=== PATIENT | male | born 1940 | race Caucasian/White ===

== ENCOUNTER 2018-12-16 11:57 | Inpatient (IN) ==
[2018-12-16 13:24] LABS: BASO# 0.01 X1000 (0.0-0.2); BASO% 0.1 % (0.0-0.8); EOS# 0.07 X1000 (0.0-0.7); EOS% 0.7 % (0.0-10.0); HEMATOCRIT 38.5 % (42.0-52.0); HEMOGLOBIN 13.3 g/dL (14.0-18.0); IMM GRAN# 0.02 X1000 (0.0-0.04); IMM GRAN% 0.2 % (0.0-0.5); LYMPH# 1.32 X1000 (1.2-3.4); LYMPH% 13.3 % (20.5-51.1); MCH 31.1 PG (27-31); MCHC 34.5 g/dL (33-37); MONO# 0.97 X1000 (0.11-0.59); MONO% 9.7 % (1.7-9.3); MPV 9.6 FL (7.4-10.4); NEUT# 7.57 X1000 (1.4-6.5); PLT 192 X1000 (130-400); RBC 4.28 XMIL (4.7-6.1); RDW 14.1 % (11.5-14.5); WBC 9.96 X1000 (4.8-10.8)
[2018-12-16 13:40] LABS: INR 4.37; PROTIME 44.7 Seconds (11.0-16.0)
[2018-12-16 14:10] LABS: AGAP 11; ALB/GLOB RATIO 1.4; ALBUMIN 3.6 g/dL (3.5-5.0); ALKALINE PHOSPHATASE 57 U/L (32-122); AMYLASE 1047 U/L (20-200); BUN 13 mg/dL (8-22); CALCIUM 8.7 mg/dL (8.8-10.2); CHLORIDE 105 mmol/L (98-107); COSMO 275; CREATININE 0.8 mg/dL (0.7-1.2); ESTIMATED GFR > 60; GLUCOSE 92 mg/dL (70-104); GOT 13 U/L (10-34); GPT 19 U/L (10-44); LIPASE 1539 U/L (13-60); MAGNESIUM 1.9 mg/dL (1.5-2.7); POTASSIUM 3.4 mmol/L (3.5-5.1); SODIUM 138 mmol/L (136-145); TCO2 22 mmol/L (25-35); TOTAL BILIRUBIN 1.05 mg/dL (0.20-1.00); TOTAL PROTEIN 6.2 g/dL (6.3-8.3)
--- NOTE | 2018-12-16 14:59 | Diag Imaging Result Doc PS360 ---
EXAM: CT ABD/PELVIS W/IV CONT ONLY 12/16/2018 HISTORY: genlzd abd pain, hx umb hernia TECHNIQUE: This exam was performed using automated exposure control, adjustment of mA or kV according to patient size, and/or use of iterative reconstruction technique. COMMENT: There are interstitial opacities in the costophrenic sulcus on the left which may be due to fibrosis. There are no previous studies available for comparison. There are calcifications in the aorta and its branches. There is no evidence of abdominal aortic aneurysm. The mesenteric and renal arteries are patent. There is an accessory renal artery on the right. The spleen is not enlarged. There is edema surrounding the pancreas particularly in the body and head region. The pancreatic duct is distended to 6 mm in the body. There are multiple calcifications present in the pancreatic head including one that is possibly in the distal common bile duct. This measures 8 mm in diameter. Additionally there is a possible intraductal calcification in the tail of the pancreas best seen on image 42 of the arterial phase. There are some small gallstones in the gallbladder. No evidence of gallbladder wall thickening or para cholecystic fluid is present. The liver is otherwise unremarkable. The kidneys are without evidence of hydronephrosis or mass. The stomach is not distended. There is fluid and gas in the colon without evidence of dilatation. There is fluid throughout much of the visualized small bowel. The possibility of some ileus is suspected. There is no evidence of significant adenopathy. The adrenal glands are not enlarged. The portal vein is patent. Pelvis: The appendix is normal in appearance. The urinary bladder is not distended. There bilateral fat-containing inguinal hernias. There are degenerative disc changes in the lumbar spine. There is no evidence of acute bony abnormality. There are healing fractures of the seventh eighth and ninth posterior ribs on the left. IMPRESSION: Acute pancreatitis possibly superimposed on chronic pancreatitis changes. The possibility of stones in the distal common bile duct and pancreatic duct cannot be excluded. Cholelithiasis. Electronically signed by Martinez Puri 12/16/2018 2:57 PM
[2018-12-16] MEDS ORDERED: LR 1,000 ML IV ONE (15:48)
[2018-12-16 15:57] LABS: URINE SOURCE CLEAN CATCH
[2018-12-16 16:04] LABS: BILIRUBIN URINE NEGATIVE (NEGATIVE); BLOOD URINE NEGATIVE (NEGATIVE); COLOR YELLOW; GLUCOSE URINE NEGATIVE (NEGATIVE); KETONE URINE NEGATIVE (NEGATIVE); LEUKOCYTES URINE NEGATIVE (NEGATIVE); NITRITE URINE NEGATIVE (NEGATIVE); PROTEIN URINE TRACE mg/dL (NEGATIVE); TURBIDITY URINE CLEAR (CLEAR); UROBILINOGEN URINE 3 mg/dL (NORMAL)
[2018-12-16 16:06] LABS: UR EPITHELIAL CELLS <10 /HPF (<10); URINE BACTERIA NEGATIVE /HPF; URINE RBC <10 /HPF (<10); URINE WBC <10 /HPF (<10)
[2018-12-16 16:17] LABS: UR AMPHETAMINES QUAL NONE DETECTED (NONE DETECT); UR BARBITUATES QUAL NONE DETECTED (NONE DETECT); UR BENZODIAZEPIN QUAL NONE DETECTED (NONE DETECT); UR CANNABINOIDS QUAL NONE DETECTED (NONE DETECT); UR COCAINE QUAL NONE DETECTED (NONE DETECT); UR METHADONE QUAL NONE DETECTED (NONE DETECT); UR OPIATES QUAL NONE DETECTED (NONE DETECT); UR OXYCODONE QUAL NONE DETECTED (NONE DETECT); UR PCP QUAL NONE DETECTED (NONE DETECT)
--- NOTE | 2018-12-16 16:32 | PROVIDER DOCUMENTATION ---
This chart was entered by Lisa Palomino Scribe, acting as scribe for Sandeep Bills MD. HPI-Abdominal Pain/GI Problem - General Chief Complaint: Abdominal Pain Stated Complaint: HERNIA Time Seen by Provider: 12/16/18 12:32 Source: patient Allergies/Adverse Reactions: Patient Allergies Allergy/AdvReac Type Severity Reaction Status Date / Time No Known Allergies Allergy Verified 09/14/17 09:48 Home Medications: Home Medication List Medication Instructions Recorded Confirmed Last Taken Type Aspirin 325 mg PO DAILY 09/14/17 03/07/18 02/28/18 08:00 History Metoprolol Tartrate 50 mg PO DAILY 09/14/17 03/07/18 03/06/18 08:00 History Atorvastatin Calcium 80 mg PO DAILY 03/01/18 03/07/18 02/28/18 08:00 History Finasteride 5 mg PO DAILY 03/01/18 03/07/18 02/28/18 08:00 History Folic Acid/Mv,Fe,Min [One Daily 1 each PO DAILY 03/01/18 03/07/18 03/06/18 08:00 History Complete Tablet] Metformin HCl 500 mg PO DAILY 03/01/18 03/07/18 03/06/18 21:00 History Omeprazole 20 mg PO DAILY 03/01/18 03/07/18 03/06/18 19:00 History Tamsulosin HCl 0.4 mg PO BID 03/01/18 03/07/18 03/06/18 19:00 History Warfarin Sodium 5 mg PO DAILY 03/01/18 03/07/18 02/28/18 08:00 History Acetaminophen [Tylenol] 1,000 mg PO Q6H tablet 03/08/18 Unknown Rx Celecoxib [Celebrex] 200 mg PO BID #60 cap 03/08/18 Unknown Rx Docusate Sodium [Colace] 100 mg PO BID capsule 03/08/18 Unknown Rx Magnesium Hydroxide [Milk of 30 ml PO Q6H PRN PRN udc 03/08/18 Unknown Rx Magnesia] Oxycodone I.r. [Oxy Ir] 5 mg PO Q3H PRN PRN #40 tab 03/08/18 Unknown Rx Pregabalin [Lyrica] 75 mg PO BID #60 cap 03/08/18 Unknown Rx Tramadol [Ultram] 100 mg PO Q6H #120 tab 03/08/18 Unknown Rx - History of Present Illness-ABD Nature of Presenting Problems: 78 y/o male presents to ED with constant, central abdominal pain onset last night. Pt reports hx umbilical hernia. Pt states he could not sleep last night due to the pain. Pt denies any other symptoms. Pt is alert and oriented. Abdominal Pain Onset Location: reports: other (central) Pain Radiation: reports: no radiation Quality of Pain: reports: sharp Severity in ED: reports: moderate Onset/Duration: reports: last night Timing: reports: still present Activities at Onset: reports: none Exposure to sick contacts?: No Modifying Factors: improves with: nothing Associated Symptoms: reports: denies symptoms Last BM: unsure Dark Stools Present?: reports: none noticed Rectal Bleeding: reports: none Rectal Pain: reports: none Similar Symptoms Previously?: No Recently seen or treated by another doctor?: No Review of Systems - Adult - REVIEW OF SYSTEMS - ADULT Constitutional: denies: chills, fever Eyes: reports: no symptoms reported Ears, Nose, Mouth & Throat: reports: no symptoms reported Cardiovascular: denies: chest pain, palpitations Respiratory: denies: cough, shortness of breath Gastrointestinal: denies: abdominal pain, diarrhea, nausea, vomiting Genitourinary: reports: no symptoms reported Musculoskeletal: denies: back pain, joint pain Integumentary: reports: no symptoms reported Neurological: denies: dizziness/vertigo, seizure Psychiatric: reports: no symptoms reported Endocrine: reports: no symptoms reported Hematologic/Lymphatic: reports: no symptoms reported Allergic/Immunologic: reports: no symptoms reported All Other Systems: Reviewed and Negative Past History - Adult - PAST MEDICAL HISTORY-ADULT Review of Records: reports: Old Records Reviewed, Nursing Assessment Review, Medications Reviewed Major Childhood Illnesses: reports: denies history Cardiovascular: reports: denies history, blood clots (on coumadin), CAD, HTN, hyperlipidemia, [place] Respiratory: reports: denies history Gastrointestinal: reports: denies history, other (umbilical hernia) Obstetrical/Gynecological: reports: denies history Genitourinary: reports: denies history Musculoskeletal: reports: denies history Neurological: reports: denies history Endocrine/Immune: reports: denies history, Diabetes Other Conditions: reports: denies history - PRIOR SURGERIES/PROCEDURES Surgical/Procedure History: reports: cardiac stent, joint replacement (TKR) - IMMUNIZATION STATUS Childhood Immunizations: See Nurse Assessment Flu Vaccine: See Nurse Assessment - FAMILY HISTORY Family History: reviewed, not pertinent - SOCIAL HISTORY Smoking: chew Provider spent 3-5 mins advising pt. on dangers of tobacco.: Discussed manners to quit use, and f/u contacts for add'l counseling. Substance Use: none/never Alcohol Use Frequency: never Living Situation: family Physical Exam-General - PHYSICAL EXAM-ADULT Initial Vital Signs Reviewed: Yes - CONSTITUTIONAL General Appearance: appears well, alert, no apparent distress - EYES Eyes: PERRL/EOMI, pink conjunctivae - HEAD, EARS, NOSE, MOUTH & THROAT HENMT: normocephalic/atraumatic, moist mucous membranes, normal ENT inspection - NECK Neck: non-tender, full range of motion - RESPIRATORY Respiratory: chest non-tender, lungs clear, normal breath sounds - CARDIOVASCULAR Cardiovascular: normal peripheral pulses, regular rate, rhythm - GASTROINTESTINAL (ABDOMEN) Abdominal Exam: normal bowel sounds, non tender, soft, hernia (umbilical), other (diastasis rectus). negative: guarding - MUSCULOSKELETAL Back Exam: normal inspection, no CVA tenderness Extremity: normal range of motion, non-tender, normal gait - SKIN Integumentary: normal color, warm/dry - NEUROLOGIC Neurologic: grossly normal - PSYCHIATRIC Psych/Mental Status: normal mood/affect, normal thought content, normal thought process Progress - PLAN OF CARE/RESULTS Progress/Plan/Lab Results: Vital Signs - 8 hr 12/16/18 12:03 Temperature 98.6 F Pulse Rate 73 Respiratory Rate 18 Blood Pressure 91/61 O2 Sat by Pulse Oximetry 96 Orders Category Date Time Status Admit - [facility] Routine AdmDCTranf 12/16/18 15:59 Active Nursing- MD Consult Request ROUTINE Care 12/16/18 15:52 Active Physician/Provider Consults Routine Cons 12/16/18 15:[address] ABD/PELVIS W/IV CONT ONLY [CT] Stat Exams 12/16/18 14:30 Completed ALCOHOL BLOOD Stat Lab 12/16/18 15:47 Ordered AMYLASE [CHEM] Stat Lab 12/16/18 13:13 Completed CBC WITH DIFF [HEME] Stat Lab 12/16/18 13:13 Completed COMPREHENSIVE METABOLIC PANEL [CHEM] Stat Lab 12/16/18 13:13 Completed LIPASE [CHEM] Stat Lab 12/16/18 13:13 Completed MAGNESIUM [CHEM] Stat Lab 12/16/18 13:13 Completed PROTIME WITH INR [COAG] Stat Lab 12/16/18 13:13 Completed PTT [COAG] Stat Lab 12/16/18 13:13 Completed URINALYSIS W/POSS RFLX CULT [URINALYSIS] Stat Lab 12/16/18 15:48 Results URINE DRUG SCREEN Routine Lab 12/16/18 15:48 Completed Lactated Ringers Inj [Lr] 1,000 ml Med 12/16/18 16:00 Active IV 75 mls/hr Lactated Ringers Inj [Lr] 1,000 ml Med 12/16/18 15:48 Active IV 999 mls/hr Transfer/Admit Order [TRANSFER] Routine Transfer 12/16/18 15:58 Ordered Laboratory Tests 12/16/18 12/16/18 12/16/18 13:13 13:13 13:13 WBC 9.96 RBC 4.28 L Hgb 13.3 L Hct 38.5 L MCV 90.0 MCH 31.1 H MCHC 34.5 RDW Std Deviation 14.1 Plt Count 192 MPV 9.6 Immature Gran % (Auto) 0.2 Neut % (Auto) 76.0 H Lymph % (Auto) 13.3 L [place] % (Auto) 9.7 H Eos % (Auto) 0.7 Baso % (Auto) 0.1 Immature Gran # (Auto) 0.02 Neut # (Auto) 7.57 H Lymph # (Auto) 1.32 [place] # (Auto) 0.97 H Eos # (Auto) 0.07 Baso # (Auto) 0.01 PT INR PTT (Actin FS) 48.4 H Sodium 138 Potassium 3.4 L Chloride 105 Carbon Dioxide 22 L Anion Gap 11 BUN 13 Creatinine 0.8 Estimated GFR/1.73 m2 > 60 BUN/Creatinine Ratio 16 Glucose 92 Calculated Osmolality 275 Calcium 8.7 L Magnesium 1.9 Total Bilirubin 1.05 H AST 13 ALT 19 Alkaline Phosphatase 57 Total Protein 6.2 L Albumin 3.6 Globulin 2.6 Albumin/Globulin Ratio 1.4 Amylase 1047 H Lipase 1539 H Urine Source Urine Color Urine Turbidity Urine pH Urine Protein Ur Glucose (Stick) Ur Ketones (Stick) Urine Blood Urine Nitrite Urine Bilirubin Urobilinogen Dipstick Urine Leukocytes Urine WBC (Auto) Urine RBC (Auto) U Epithel Cells (Auto) Urine Bacteria (Auto) Urine Opiates Screen Ur Oxycodone Screen Ur Methadone, Qual Ur Barbiturates Screen Ur Phencyclidine Scrn Ur Amphetamines Screen U Benzodiazepines Scrn Urine Cocaine Screen U Cannabinoids Screen 12/16/18 12/16/18 12/16/18 13:13 15:48 15:48 WBC RBC Hgb Hct MCV MCH MCHC RDW Std Deviation Plt Count MPV Immature Gran % (Auto) Neut % (Auto) Lymph % (Auto) [place] % (Auto) Eos % (Auto) Baso % (Auto) Immature Gran # (Auto) Neut # (Auto) Lymph # (Auto) [place] # (Auto) Eos # (Auto) Baso # (Auto) PT 44.7 H INR 4.37 PTT (Actin FS) Sodium Potassium Chloride Carbon Dioxide Anion Gap BUN Creatinine Estimated GFR/1.73 m2 BUN/Creatinine Ratio Glucose Calculated Osmolality Calcium Magnesium Total Bilirubin AST ALT Alkaline Phosphatase Total Protein Albumin Globulin Albumin/Globulin Ratio Amylase Lipase Urine Source CLEAN CATCH Urine Color YELLOW Urine Turbidity CLEAR Urine pH 6.0 Urine Protein TRACE A Ur Glucose (Stick) NEGATIVE Ur Ketones (Stick) NEGATIVE Urine Blood NEGATIVE Urine Nitrite NEGATIVE Urine Bilirubin NEGATIVE Urobilinogen Dipstick 3 A Urine Leukocytes NEGATIVE Urine WBC (Auto) <10 Urine RBC (Auto) <10 U Epithel Cells (Auto) <10 Urine Bacteria (Auto) NEGATIVE Urine Opiates Screen NONE DETECTED Ur Oxycodone Screen NONE DETECTED Ur Methadone, Qual NONE DETECTED Ur Barbiturates Screen NONE DETECTED Ur Phencyclidine Scrn NONE DETECTED Ur Amphetamines Screen NONE DETECTED U Benzodiazepines Scrn NONE DETECTED Urine Cocaine Screen NONE DETECTED U Cannabinoids Screen NONE DETECTED Result Diagrams: 12/16/18 13:13 12/16/18 13:13 - CT/MRI 1 CT Study: Abdomen, Pelvis Impression: Abnormal (COMMENT: There are interstitial opacities in the costophrenic sulcus on the left which may be due to fibrosis. There are no previous studies available for comparison. There are calcifications in the aorta and its branches. There is no evidence of abdominal aortic aneurysm. The mesenteric and renal arteries are patent. There is an accessory renal artery on the right. The spleen is not enlarged. There is edema surrounding the pancreas particularly in the body and head region. The pancreatic duct is distended to 6 mm in the body. There are multiple calcifications present in the pancreatic head including one that is possibly in the distal common bile duct. This measures 8 mm in diameter. Additionally there is a possible intraductal calcification in the tail of the pancreas best seen on image 42 of the arterial phase. There are some small gallstones in the gallbladder. No evidence of gallbladder wall thickening or para cholecystic fluid is present. The liver is otherwise unremarkable. The kidneys are without evidence of hydronephrosis or mass. The stomach is not distended. There is fluid and gas in the colon without evidence of dilatation. There is fluid throughout much of the visualized small bowel. The possibility of some ileus is suspected. There is no evidence of significant adenopathy. The adrenal glands are not enlarged. The portal vein is patent. Pelvis: The appendix is normal in appearance. The urinary bladder is not distended. There bilateral fat-containing inguinal hernias. There are degenerative disc changes in the lumbar spine. There is no evidence of acute bony abnormality. There are healing fractures of the seventh eighth and ninth posterior ribs on the left. IMPRESSION: Acute pancreatitis possibly superimposed on chronic pancreatitis changes. The possibility of stones in the distal common bile duct and pancreatic duct cannot be excluded. Cholelithiasis. Electronically signed by Martinez Puri 12/16/2018 2:57 PM 12/16/18 [id number]) - CONSULTS/PCP/HOSPITALIST Notification #1 *Consult/PCP/Hospitalist*: Dr. Campbell Time Discussed: 16:00 Consult Disposition: Admit Departure - Departure Date of Disposition Decision: 12/16/18 Time of Disposition Decision: 16:31 DIAGNOSIS: Common bile duct stone Pancreatitis Qualifiers: Chronicity: acute Pancreatitis type: unspecified pancreatitis type Acute pancreatitis complication: unspecified Qualified Code(s): K85.90 - Acute pancreatitis without necrosis or infection, unspecified Disposition: ADMITTED INPATIENT 09 Certified Medical Emergency: Emergent Condition: Stable Referrals and Follow-Ups: Stefania Hogan MD [Primary Care Provider] - Discharge Education: Smokeless Tobacco Information, Adult - Critical Care Note This patient required my direct & personal management of CC.: No Attestation - Physician/ SP Attestation Patient care was provided by Advanced Practice Provider:: No The physician spent face to face time with patient:: Yes Advanced Practice Provider documentation review:: Supervising physician onsite and consulted in the evaluation and care of this patient. The physician did have a face to face encounter with the patient. This chart was documented by the indicated scribe, (Lisa Palomino, Abby) and accurately reflects the services I performed and decisions made by me, Sandeep Bills MD, as attested by the provider's signature.
[2018-12-16 16:46] LABS: SP GRAVITY URINE 1.015
[2018-12-16] MEDS ORDERED: NORCO-10 PO PRN (17:18)
[2018-12-16] MEDS: LR 1,000 ML IV SCH (17:40)
[2018-12-16] MEDS ORDERED: FLOMAX PO SCH (21:00)
[2018-12-16] MEDS: POTASSIUM CHLORIDE 20 MEQ/SWI 20 MEQ/100 ML IVPB IV SCH (21:45)
--- NOTE | 2018-12-16 22:27 | HISTORY AND PHYSICAL ---
CHIEF COMPLAINT: Abdominal pain for 10 hours. HISTORY OF PRESENT ILLNESS: Mr. Kim is a 78-year-old man, a poor historian, who comes in with chief complaint of abdominal pain of about 10 hours duration. The patient states that he started experiencing periumbilical abdominal pain which was sharp at nighttime, and he woke up with the pain. His pain did not get better, so that is why he considered coming to the emergency room. He describes pain as sharp, about 8 on 10 intensity, without associated nausea or vomiting, without any radiation, without any aggravating or relieving factors. He has not had such pain in the past. In the emergency room, by the time he came in, his abdominal pain had resolved; however, his lab tests suggested significant abnormality with elevated amylase and lipase and a possibility of common bile duct stone with acute on chronic pancreatitis, so hospitalist team was consulted for further management. At the time of my evaluation, he is denying any more abdominal pain. He never had any nausea or vomiting. He states he was constipated and took some stool softeners, and since then he has had 5 bowel movements. His last drink was several weeks ago. He is denying active alcohol use and he is no longer smoking. He denies known history of gallstones. REVIEW OF SYSTEMS: Negative for headache. Negative for blurry vision. Negative for nausea, vomiting. Negative for chest pain or shortness of breath. Negative for abdominal pain at the moment. Negative for nausea, vomiting. Negative for urinary symptoms. Negative for burning in urination or dizziness. PAST MEDICAL HISTORY: History is limited as the patient is a poor historian; however, based on the records and with the limited history, he does have past medical history of: 1. Alcohol abuse. 2. Tobacco abuse. 3. Chronic pancreatitis. 4. Benign prostatic hypertrophy. 5. Chronic GERD. 6. Right lower extremity DVT. 7. Coronary artery disease, status post stent in 2015. 8. DVT in right lower extremity in 2015. 9. Diabetes, noninsulin dependent. 10. Essential hypertension. 11. Hyperlipidemia. PAST SURGICAL HISTORY: Right total knee replacement. PERSONAL HISTORY: He used to smoke 1 pack a day and he smoked for about 30 to 40 years. He quit around year 1999. He used to drink 6 to 7 beers every day, and he quit about 1 year ago. He denies any recreational drug use. ALLERGIES: No medication allergy. FAMILY HISTORY: Not significant. HOME MEDICATIONS: According to records, he is takin. Atorvastatin 80 mg daily. 2. Finasteride 5 mg daily. 3. Hydrocodone acetaminophen 10 mg. The frequency is not recorded. 4. Metformin 500 mg likely b.i.d. 5. Metoprolol 50 mg. 6. Nitroglycerin 0.4 mg. 7. Omeprazole 20 mg. 8. Ramipril 10 mg. 9. Tamsulosin 0.4 mg. 10. Warfarin 5 mg daily. CURRENT VITAL SIGNS: He is afebrile with temperature of 98.6 degrees, pulse 73, respiratory rate 18, blood pressure 90/61, saturating 96% on room air. PHYSICAL EXAMINATION: GENERAL: He does not appear in acute distress. ORAL CAVITY: Moist. LUNGS: Air entry bilaterally equal. No wheeze, rhonchi, crackles. HEART: S1, S2 normal. No murmur or gallop. ABDOMEN: Soft, nontender. Active bowel sounds. No hepatosplenomegaly. Tympanic to percussion. EXTREMITIES: He does not have lower extremity edema. NEUROLOGIC: He is alert and oriented x3. LABS: Significant for normal WBC, normal hemoglobin, and normal platelet count. He does have elevated INR of 4.3. Hypokalemia. Normal kidney function. Elevated amylase and lipase. Urinalysis was unremarkable. His plasma alcohol level was undetectable, and urine toxicology was an undetectable. IMAGING: Abdomen and pelvis CT had suggested acute pancreatitis, possibly superimposed on chronic pancreatitis. There were possibility of stones in the distal common bile duct and pancreatic duct and cholelithiasis. ASSESSMENT: 1. Suspected acute gallstone pancreatitis on chronic pancreatitis. Considering that he is without any pain after he has been in the emergency room and no tenderness, it is possible that he might have passed a gallstone and pancreatitis is resolving. 2. History of coronary artery disease and stenting in 2015, approximately. 3. History of right lower extremity deep venous thrombosis, on Coumadin, with current supratherapeutic INR. 4. Hypokalemia. PLAN: 1. I will start patient on intravenous lactated Ringer's. 2. I will replete his potassium. 3. I will resume his home antihypertensive and anticholesterol medication as tolerated. 4. I will also consult Gastroenterology to see if he would need procedural intervention of his suspected common bile duct stone. 5. Plan of care discussed with the patient. All of his questions have been answered. cc: Jase Campbell MD MTDD
[2018-12-16] MEDS: DUONEB (A & A) INH SCH (22:29)
[2018-12-16] MEDS: HUMALOG SUBQ SCH (23:21)
[2018-12-17] MEDS: POTASSIUM CHLORIDE 20 MEQ/SWI 20 MEQ/100 ML IVPB IV SCH (00:59)
[2018-12-17] MEDS: DUONEB (A & A) INH SCH ×2 (03:20→10:39)
[2018-12-17] MEDS: LR 1,000 ML IV SCH (06:03)
[2018-12-17] MEDS: HUMALOG SUBQ SCH ×2 (06:03→11:59)
[2018-12-17] MEDS: PRILOSEC PO SCH ×2 (06:03→06:05)
[2018-12-17 07:43] LABS: BASO# 0.01 X1000 (0.0-0.2); BASO% 0.1 % (0.0-0.8); EOS# 0.07 X1000 (0.0-0.7); EOS% 0.9 % (0.0-10.0); HEMATOCRIT 38.6 % (42.0-52.0); HEMOGLOBIN 13.2 g/dL (14.0-18.0); LYMPH# 1.29 X1000 (1.2-3.4); LYMPH% 16.7 % (20.5-51.1); MCHC 34.2 g/dL (33-37); MCV 90.6 FL (81-99); MONO# 0.79 X1000 (0.11-0.59); MONO% 10.2 % (1.7-9.3); MPV 9.6 FL (7.4-10.4); NEUT# 5.57 X1000 (1.4-6.5); NEUT% 72.1 % (42.2-75.2); PLT 166 X1000 (130-400); RBC 4.26 XMIL (4.7-6.1); RDW 13.9 % (11.5-14.5); WBC 7.73 X1000 (4.8-10.8)
[2018-12-17 08:01] LABS: INR 3.6; PROTIME 38.4 Seconds (11.0-16.0)
[2018-12-17 08:15] LABS: AGAP 10; BUN 12 mg/dL (8-22); CHLORIDE 107 mmol/L (98-107); COSMO 281; CREATININE 0.8 mg/dL (0.7-1.2); ESTIMATED GFR > 60; GLUCOSE 98 mg/dL (70-104); MAGNESIUM 1.8 mg/dL (1.5-2.7); POTASSIUM 4.1 mmol/L (3.5-5.1); SODIUM 141 mmol/L (136-145); TCO2 24 mmol/L (25-35)
[2018-12-17] MEDS ORDERED: LIPITOR PO SCH (09:00)
[2018-12-17] MEDS ORDERED: PROSCAR PO SCH (09:00)
[2018-12-17 09:05] LABS: ALB/GLOB RATIO 1.5; ALBUMIN 3.5 g/dL (3.5-5.0); DIRECT BILIRUBIN 0.3 mg/dL (0.00-0.20); TOTAL BILIRUBIN 1.14 mg/dL (0.20-1.00); TOTAL PROTEIN 5.9 g/dL (6.3-8.3)
[2018-12-17] MEDS ORDERED: COLACE PO PRN (10:15)
[2018-12-17 12:33] VITALS: BP 137/65
[2018-12-17] MEDS ORDERED: FISH OIL CONCENTRATE PO SCH (21:00)
[2018-12-17] MEDS ORDERED: FLOMAX PO SCH (21:00)
--- NOTE | 2018-12-18 06:39 | GASTROENTEROLOGY CONSULTATION ---
DATE: 12/17/2018 REASON FOR CONSULTATION: Acute pancreatitis. HISTORY OF PRESENT ILLNESS: Mr. Nakul Kim is a 78-year-old gentleman with past medical history of hypertension, hyperlipidemia, coronary artery disease status post FL and stents in 2014, prior DVT in the right lower extremity, on Coumadin, remote tobacco and alcohol abuse, GERD, noninsulin- dependent diabetes, who presents with acute abdominal pain that started yesterday. He reports that the pain was periumbilical and severe, nonradiating, up to 8/10, and sharp in nature. He denies any associated nausea, vomiting, fevers, chest pain, shortness of breath, diarrhea, constipation, rectal bleeding, history of similar symptoms in the past. No lightheadedness or dizziness. REVIEW OF SYSTEMS: As per HPI, somewhat limited as patient was not as cooperative with interview. PAST MEDICAL HISTORY: Per patient and chart, include chronic pancreatitis, GERD, right lower extremity DVT, coronary artery disease status post FL and stents, noninsulin- dependent diabetes, hypertension, hyperlipidemia, prior alcohol and tobacco abuse. PRIOR SURGICAL HISTORY: Right total knee replacement. SOCIAL HISTORY: The patient used to be 1 [id number] smoker for about 30 to 40 years, he quit around to 1999. He used to drink 6 to 7 beers a day, he quit about a year ago. He denies any recreational drug use. ALLERGIES: No known drug allergies. FAMILY HISTORY: No family history of pancreatitis or pancreatic cancer. HOME MEDICATIONS: According to the records lovastatin, finasteride, Elfrida, metformin, metoprolol, nitroglycerin, omeprazole, ramipril, tamsulosin, warfarin. PHYSICAL EXAMINATION: Vital signs: Stable with the temperature of 98.3 degrees, heart rate of 69, respiratory rate 20, blood pressure 140/73, O2 saturation 97% on room air. General: Patient is awake, alert, oriented, no acute distress. HEENT: Sclerae anicteric. Moist mucous membranes. Neck: Supple. No JVD. No lymphadenopathy. Cardiac: Regular rate and rhythm. No murmurs, rubs, or gallops. Lungs: Clear to auscultation bilaterally. No wheezing. Abdomen: Soft, nontender, nondistended. Normoactive bowel sounds. No rebound or guarding. Extremities: No clubbing, cyanosis, or edema. Neuro: Nonfocal. The patient is A and O x3. LABORATORY DATA: White count of 7.7, hemoglobin 13.2, platelets of 166,000. INR was 4.3 on admission, now 3.6. Sodium 141, potassium 4.1, chloride 107, bicarb 24, BUN 12, creatinine 0.8. Glucose of 98, calcium 9.0, magnesium 1.8, total bilirubin 1.14, direct of 0.30, primarily indirect hemoglobinuria, AST is 14, ALT is 17, alkaline phosphatase 59, total protein 5.9, albumin 3.5, lipase of 1539. UA showed urobilinogen, trace protein. Urine toxicology is negative. Alcohol level is negative. IMAGING: CT abdomen and pelvis with IV contrast only showed acute pancreatitis, possibly superimposed on chronic pancreatitis. The possibility of stones in the distal common bile duct and pancreatic duct cannot be excluded. Cholelithiasis. ASSESSMENT AND PLAN: Mr. Nakul Kim is a 78-year-old gentleman with past medical history of hypertension, coronary artery disease status post FL and stents, prior deep venous thrombosis, on warfarin, prior tobacco and alcohol abuse, and chronic pancreatitis, who presents with acute on chronic pancreatitis. His vital signs are stable. His CT shows changes consistent with chronic pancreatitis with question distal CBD stone, although there was no common bile duct dilation seen on imaging. MRCP has been ordered and pending. LFTs are normal. His abdominal pain has resolved, suggestive of a passed gallstone. No alcohol or recent smoking. No abnormal weight loss. Renal function is normal. INR was 4.3, currently 3.9, supratherapeutic. 1. Acute pancreatitis. Significant improvement overnight with supportive care and IV fluids. MRCP is ordered. If unable to do this weekend, can defer to outpatient given the patient's improvement in symptoms and normal LFTs. We can start him on a low-fat diet and monitor. If he is doing well, he can be discharged from a GI standpoint with outpatient followup in the next 1 to 2 weeks. He will need a general surgery evaluation either in-house or as an outpatient for evaluation of possible cholecystectomy. 2. Prior deep venous thrombosis, on warfarin. We are holding his warfarin in the setting of supratherapeutic INR. 3. Chronic pancreatitis on imaging. Continue to encourage avoidance of alcohol and smoking. 4. Coronary artery disease. He does not have any chest pain. Continue aspirin, statin, and metoprolol. 5. Gastroesophageal reflux disease. He is on a proton pump inhibitor once daily. 6. Noninsulin-dependent diabetes. He is on sliding scale insulin and metformin. 7. Constipation, on docusate. Thank you for this consult. Plan discussed with primary team. Please call with any questions or concerns. [facility]
[2018-12-18] MEDS ORDERED: KLOR-CON PO SCH (09:00)
[2018-12-18] MEDS ORDERED: ASPIRIN PO SCH (09:00)
[2018-12-18] MEDS ORDERED: LOPRESSOR PO SCH (09:00)
[2018-12-18] MEDS ORDERED: LIPITOR PO SCH (09:00)
[2018-12-18] MEDS ORDERED: GLUCOPHAGE PO SCH (09:00)
[2018-12-18] MEDS ORDERED: THERA M PLUS PO SCH (09:00)
[2018-12-18] MEDS ORDERED: PROSCAR PO SCH (09:00)
--- NOTE | 2018-12-18 09:34 | DISCHARGE SUMMARY ---
ADMISSION DATE: 12/16/2018 DISCHARGE DATE: 12/17/2018 DISCHARGE DISPOSITION: Home. I called patient's son and informed him about medical course and provided him detailed discharge instructions about getting outpatient MRCP and following up with show horse driver and surgeon. DISCHARGE CONDITION: Stable hemodynamically. Patient is alert and oriented. Denies any nausea, vomiting, abdominal pain. He denies any abdominal pain. DISCHARGE DIAGNOSES: 1. Acute likely gallstone-induced pancreatitis on chronic pancreatitis. 2. Hypokalemia. 3. Supratherapeutic INR in the setting of Coumadin use. 4. Suspected choledocholithiasis and pancreatic duct gallstone with cholelithiasis. OTHER DIAGNOSES: 1. History of essential hypertension. 2. History of coronary artery disease, status post stent in 2014. 3. History of deep venous thrombosis in the right lower extremity in 2014, on chronic Coumadin. 4. History of noninsulin-dependent diabetes mellitus. 5. Hyperlipidemia. 6. History of alcohol abuse, resolved since 1 year. 7. History of tobacco abuse, quit since 25 years ago . 8. History of chronic pancreatitis. 9. History of right total knee replacement. CONSULTATIONS DURING HOSPITALIZATION: [facility], Dr. Lafleur. DISCHARGE MEDICATIONS: Aspirin 325 mg daily, atorvastatin 80 mg daily, docusate 100 mg b.i.d. as needed for constipation, finasteride 5 mg daily, potassium chloride 20 mEq daily, metformin 500 mg daily, metoprolol 50 mg daily, omega-3 fatty acids 1 tablet b.i.d., folic acid 1 tablet daily of 1 mg, tamsulosin 0.4 mg b.i.d., warfarin 5 mg daily. VITALS: At the time of discharge, temperature 98.3 degrees, pulse 69, respiratory rate 20, blood pressure 140/76, saturating 97% on room air. PHYSICAL EXAMINATION: The patient does not appear in any acute distress. Oral cavity is moist. Lungs: Air entry bilaterally equal. No wheeze, rhonchi, crackles. Cardiovascular: S1, S2 normal. No murmur or gallop. Abdomen: Soft, nontender. Active bowel sounds. He is currently having a bowel movement. No hepatosplenomegaly. Tympanic to percussion. No lower extremity edema. He is alert and oriented x3. SIGNIFICANT LABS DURING HOSPITAL ADMISSION AND DISCHARGE: WBCs 7.7, hemoglobin 13.2, platelet count 166,000. INR 4.3, which had decreased to 3.6 at the time of discharge. Potassium was 3.4 which had increased to 4.1 at the time of discharge after repletion. BUN of 12, creatinine of 0.8. Total bilirubin of 1.1, direct bilirubin of 0.3. Normal AST, ALT. Amylase and lipase on admission were 1447 and 1500 respectively. Urinalysis was negative for any recreational substances and blood alcohol level was undetectable. No new microbiological data. IMAGING: During hospital admission, abdominal and pelvic CT had detected acute pancreatitis, possibly superimposed on chronic pancreatitis changes. There was possibility of stones in the distal common bile duct and pancreatic duct. There was also cholelithiasis. HOSPITAL COURSE SUMMARY: Mr. Kim is a 78-year-old, man with a past medical history of alcohol abuse who came in with complaints of sudden onset abdominal pain. The patient was a poor historian. He states he had woken up with sudden abdominal pain and that is why he had decided to come to the emergency room. It is likely that his abdominal pain was present for about 6 hours or so. However, by the time he reached the emergency room, his pain had resolved. He was hemodynamically stable in the emergency room. However, the CAT scan of the abdomen and pelvis had detected suspected common bile duct stone, and he had elevated amylase and lipase, so admission was requested for management of acute pancreatitis. I started him on intravenous fluid resuscitation. However, at the time of my encounter, he was already abdominal pain free and gastroenterology was consulted. MRCP was requested. However, considering it was a weekend, it could not be done. The patient was started on diet and he has been tolerating diet well, so it was decided to discharge the patient and get an outpatient MRCP. A prescription slip of MRCP has been provided to the patient. I called patient's son and informed him about getting an outpatient MRCP 1 day after the discharge and follow up with show horse driver and general surgeon doctor, and discuss about the results. If the MRCP detects that the stones are indeed in common bile duct or pancreatic duct, then he may need further intervention from gastroenterology or surgeon. Plan of care was discussed with the patient. All of his questions were answered satisfactorily. More than 30 minutes were spent in discharging this patient. cc: Jase Campbell MD
== END 2018-12-17 14:53 | disposition home or self-care (01) | DRG 440 ==
LOC: ED 11:57 → 3N 16:52
PROVIDERS: ATTEND Internal Medicine
CPT/HCPCS: 74177; 80048; 80053; 80076; 80101; 80301; 80307; 80320; 80324; 80345; 80346; 80353; 80358; 80361; 80365; 81001; 82055; 82150; 82948; 83690; 83735; 83992; 85025; 85610; 85730; 93005; 94640; 94761; 99285; A9270; G0431; G0434; G0479; G0480; G6040; J3480; J7120; Q9967; S0138; XXXXX

== ENCOUNTER 2019-05-21 16:17 | Inpatient (IN) ==
[2019-05-21] MEDS ORDERED: DUONEB (A & A) INH ONE (16:39)
[2019-05-21] MEDS ORDERED: SOLU-MEDROL IV ONE (16:40)
[2019-05-21] MEDS ORDERED: ASPIRIN PO ONE (16:41)
[2019-05-21 17:02] LABS: BASO# 0.01 X1000 (0.0-0.2); BASO% 0.1 % (0.0-0.8); EOS# 0.02 X1000 (0.0-0.7); EOS% 0.2 % (0.0-10.0); HEMATOCRIT 39.7 % (42.0-52.0); HEMOGLOBIN 13.4 g/dL (14.0-18.0); IMM GRAN# 0.02 X1000 (0.0-0.04); IMM GRAN% 0.2 % (0.0-0.5); LYMPH# 0.76 X1000 (1.2-3.4); LYMPH% 8.4 % (20.5-51.1); MCHC 33.8 g/dL (33-37); MONO# 0.69 X1000 (0.11-0.59); MONO% 7.6 % (1.7-9.3); NEUT# 7.53 X1000 (1.4-6.5); NEUT% 83.5 % (42.2-75.2); PLT 193 X1000 (130-400); RBC 4.46 XMIL (4.7-6.1); WBC 9.03 X1000 (4.8-10.8)
[2019-05-21 17:24] LABS: AGAP 15; ALB/GLOB RATIO 1.6; ALBUMIN 3.9 g/dL (3.5-5.0); ALKALINE PHOSPHATASE 433 U/L (32-122); BUN 11 mg/dL (8-22); CHLORIDE 98 mmol/L (98-107); COSMO 272; CREATININE 0.8 mg/dL (0.7-1.2); ESTIMATED GFR > 60; GLUCOSE 144 mg/dL (70-104); GOT 506 U/L (10-34); GPT 476 U/L (10-44); LIPASE 277 U/L (13-60); POTASSIUM 3.3 mmol/L (3.5-5.1); SODIUM 135 mmol/L (136-145); TCO2 22 mmol/L (25-35); TOTAL BILIRUBIN 2.82 mg/dL (0.20-1.00); TOTAL PROTEIN 6.3 g/dL (6.3-8.3)
[2019-05-21] MEDS ORDERED: KLOR-CON PO ONE (17:46)
--- NOTE | 2019-05-21 18:03 | Diag Imaging Result Doc PS360 ---
EXAM: CHEST-1 VIEW - 05/21/2019 HISTORY: sob, cp TECHNIQUE: Portable chest one view COMPARISON: 03/11/2018 FINDINGS: Inspiration is somewhat shallow. Lungs appear essentially clear. There is no pleural effusion or pneumothorax identified. There is borderline cardiomegaly. IMPRESSION: Borderline cardiomegaly. Somewhat shallow inspiration. No other evidence of acute disease. Electronically signed by Renzo Easton 05/21/2019 6:00 PM
[2019-05-21 18:09] LABS: URINE SOURCE CLEAN CATCH
[2019-05-21] MEDS ORDERED: LASIX IV ONE (18:10)
[2019-05-21 18:11] LABS: BILIRUBIN URINE SMALL (NEGATIVE); BLOOD URINE NEGATIVE (NEGATIVE); COLOR YELLOW; GLUCOSE URINE NEGATIVE (NEGATIVE); KETONE URINE NEGATIVE (NEGATIVE); LEUKOCYTES URINE NEGATIVE (NEGATIVE); NITRITE URINE NEGATIVE (NEGATIVE); PROTEIN URINE 50 mg/dL (NEGATIVE); SP GRAVITY URINE 1.033; TURBIDITY URINE CLEAR (CLEAR); UROBILINOGEN URINE 8 mg/dL (NORMAL)
[2019-05-21 18:20] LABS: UR EPITHELIAL CELLS <10 /HPF (<10); URINE BACTERIA NEGATIVE /HPF; URINE RBC <10 /HPF (<10); URINE WBC <10 /HPF (<10)
--- NOTE | 2019-05-21 18:23 | Diag Imaging Result Doc PS360 ---
EXAM: CT ABD/PELVIS W/IV CONT ONLY - 05/21/2019 HISTORY: abdominal tenderness, recent pancreatitis TECHNIQUE: CT abdomen/pelvis with intravenous contrast. No oral contrast administered per request of the referring provider. COMPARISON: 12/16/2018 FINDINGS: There is intrahepatic and extrahepatic ductal dilatation which is substantially increased compared to prior. There is a 1 cm stone in the distal common bile duct, which appears mildly larger compared to prior. The gallbladder is substantially distended. There is fluid/edema around the gallbladder. There are multiple pancreatic calcifications and there is dilatation of pancreatic duct, compatible with chronic pancreatitis. There is mild peripancreatic edema, compatible with acute pancreatitis. There are no other acute changes identified in the liver, spleen, or adrenal glands. The kidneys enhance homogeneously except for small cysts. There is no hydronephrosis. There are atherosclerotic calcifications in lumbar spine degenerative changes noted. There is no evidence of bowel obstruction. There is no free air or gas containing abscess identified. IMPRESSION: Apparent 1 cm obstructing stone in the distal common bile duct, with intrahepatic and extrahepatic biliary ductal dilatation. The gallbladder is substantially distended, and there is pericholecystic fluid/edema. The possibility of cholecystitis cannot be excluded. Chronic and mild acute pancreatitis. This exam was performed using automated exposure control, adjustment of mA or kV according to patient size, and/or use of iterative reconstruction technique. Electronically signed by Renzo Easton 05/21/2019 6:21 PM
[2019-05-21 18:33] LABS: URINE CASTS NONE SEEN; URINE CRYSTALS NONE SEEN; URINE YEAST NONE SEEN
[2019-05-21 19:12] LABS: PTT 52.7 Seconds (22.3-41.8)
[2019-05-21 19:14] LABS: PROTIME 62.9 Seconds (11.0-16.0)
[2019-05-21 19:16] LABS: INR 6.97
[2019-05-21] MEDS ORDERED: MORPHINE IV ONE (19:44)
[2019-05-21] MEDS ORDERED: ZOSYN 4.5 GM in NS 100 ML IV ONE (20:21)
[2019-05-21] MEDS ORDERED: VITAMIN K SUBQ ONE (20:40)
--- NOTE | 2019-05-21 21:03 | Diag Imaging Result Doc PS360 ---
EXAM: CT HEAD W/O CONTRAST - 05/21/2019 HISTORY: fall, high INR TECHNIQUE: CT head without contrast COMPARISON: None. FINDINGS: There are some generalized atrophic changes. There are chronic appearing microvascular ischemic changes. There is no indication of recent infarct, although acute infarcts may not be immediately visible. There are calcifications along the falx and tentorium are compatible with long-standing change. There is no evidence of intracranial hemorrhage, mass effect, or midline shift. There is no evidence of skull fracture. Visualized portions of paranasal sinuses and mastoid air cells appear clear. IMPRESSION: No visible acute intracranial abnormality. No evidence of intracranial injury. This exam was performed using automated exposure control, adjustment of mA or kV according to patient size, and/or use of iterative reconstruction technique. Electronically signed by Renzo Easton 05/21/2019 9:01 PM
--- NOTE | 2019-05-21 21:10 | PROVIDER DOCUMENTATION ---
This chart was entered by Miya Leung Scribe, acting as scribe for Isaias Calle MD. HPI-Abdominal Pain/GI Problem - General Chief Complaint: Abdominal Pain Stated Complaint: STUFFY NOSE, CANT BREATHE Time Seen by Provider: 05/21/19 16:27 Source: patient, family Allergies/Adverse Reactions: Patient Allergies Allergy/AdvReac Type Severity Reaction Status Date / Time No Known Allergies Allergy Verified 05/21/19 19:48 Home Medications: Home Medication List Medication Instructions Recorded Confirmed Last Taken Type Aspirin 325 mg PO DAILY 09/14/17 05/21/19 02/28/18 08:00 History Metoprolol Tartrate 50 mg PO DAILY 09/14/17 05/21/19 03/06/18 08:00 History Atorvastatin Calcium 80 mg PO DAILY 03/01/18 05/21/19 02/28/18 08:00 History Finasteride 5 mg PO DAILY 03/01/18 05/21/19 02/28/18 08:00 History Folic Acid/Multivit,Iron,[place] 1 each PO DAILY 03/01/18 05/21/19 03/06/18 08:00 History [One Daily Complete Tablet] Metformin HCl 500 mg PO DAILY 03/01/18 05/21/19 03/06/18 21:00 History Tamsulosin HCl 0.4 mg PO BID 03/01/18 05/21/19 03/06/18 19:00 History Warfarin Sodium 5 mg PO DIRECTED 03/01/18 05/21/19 02/28/18 08:00 History [place]-3 Fatty Acids/Fish Oil 1 cap PO BID 12/16/18 05/21/19 Unknown History [[place] 3 1,000 mg Softgel] Potassium Chloride E.r. [Klor-Con] 20 meq PO DAILY 12/16/18 05/21/19 Unknown History Hydrocodone/Acetaminophen [[place] 1 ea PO Q6H PRN PRN 05/21/19 05/21/19 Unknown History 10-325 Tablet] - History of Present Illness-ABD Nature of Presenting Problems: 79 yowm presents w/ to er w/cc rt flank pain, rt chest pain and sob starting this am and dysuria for years. pt having trouble amb due to pain. sts pt has been tx in hospital for similar symptoms. pt has hx of htn, mi, gerd and pancreatitis. pt is a former smoker. no cva. no fever or cough. denies prostate issues. Abdominal Pain Onset Location: reports: flank (rt) Severity in ED: reports: mild Onset/Duration: reports: this morning, other (years dysuria) Associated Symptoms: reports: chest pain, genitourinary problems, shortness of breath, trouble walking Last BM: unsure Review of Systems - Adult - REVIEW OF SYSTEMS - ADULT Constitutional: reports: no symptoms reported. denies: fever, fatique, night sweats Eyes: reports: no symptoms reported Ears, Nose, Mouth & Throat: reports: no symptoms reported Cardiovascular: reports: see HPI, chest pain. denies: palpitations, poor circulation, syncope Respiratory: reports: see HPI, shortness of breath. denies: cough, dyspnea on exertion, pleurisy Gastrointestinal: reports: no symptoms reported Genitourinary: reports: see HPI, dysuria, flank pain (rt sided). denies: discharge, urinary retention, urgency Musculoskeletal: reports: no symptoms reported Integumentary: reports: no symptoms reported Neurological: reports: no symptoms reported Psychiatric: reports: no symptoms reported Endocrine: reports: no symptoms reported Hematologic/Lymphatic: reports: no symptoms reported Allergic/Immunologic: reports: no symptoms reported All Other Systems: Reviewed and Negative Past History - Adult - PAST MEDICAL HISTORY-ADULT Review of Records: reports: Old Records Reviewed, Nursing Assessment Review, Med ications Reviewed, Social history reviewed & non-contributory. Major Childhood Illnesses: reports: denies history Cardiovascular: reports: blood clots (on coumadin), CAD, HTN, hyperlipidemia, PA Respiratory: reports: denies history Gastrointestinal: reports: pancreatitis, other (umbilical hernia) Obstetrical/Gynecological: reports: denies history Genitourinary: reports: denies history Musculoskeletal: reports: denies history Neurological: reports: denies history Endocrine/Immune: reports: Diabetes Other Conditions: reports: denies history - PRIOR SURGERIES/PROCEDURES Surgical/Procedure History: reports: cardiac stent, joint replacement (TKR) - IMMUNIZATION STATUS Childhood Immunizations: See Nurse Assessment Flu Vaccine: See Nurse Assessment - FAMILY HISTORY Family History: reviewed, not pertinent - SOCIAL HISTORY Smoking: other (former smoker) Substance Use: none/never Physical Exam-General - PHYSICAL EXAM-ADULT Initial Vital Signs Reviewed: Yes - CONSTITUTIONAL General Appearance: appears well, alert, no apparent distress. negative: cachetic, anxious, lethargic - EYES Eyes: PERRL/EOMI, pink conjunctivae - HEAD, EARS, NOSE, MOUTH & THROAT HENMT: normocephalic/atraumatic, moist mucous membranes, normal ENT inspection - NECK Neck: non-tender, full range of motion, supple, normal inspection - RESPIRATORY Respiratory: chest non-tender, lungs clear, normal breath sounds - CARDIOVASCULAR Cardiovascular: normal peripheral pulses, regular rate, rhythm - GASTROINTESTINAL (ABDOMEN) Abdominal Exam: normal bowel sounds, non tender, no organomegaly, no pulsatile mass, guarding. negative: soft (voluntary), tenderness - LYMPHATIC Lymphatic: no adenopathy - MUSCULOSKELETAL Back Exam: normal inspection, no CVA tenderness, no vertebral tenderness. n egative: CVA tenderness Extremity: normal range of motion, non-tender, normal inspection Peripheral Pulses: radial (R): 2+, radial (L): 2+ - SKIN Integumentary: normal color, normal turgor, warm/dry - NEUROLOGIC Neurologic: grossly normal, no motor/sensory deficits - PSYCHIATRIC Psych/Mental Status: normal mood/affect, normal thought content, normal thought process, oriented x 3 Progress - PLAN OF CARE/RESULTS Progress/Plan/Lab Results: Vital Signs - 8 hr 05/21/19 16:21 Temperature 97.9 F Pulse Rate 80 Respiratory Rate 18 Blood Pressure 125/70 O2 Sat by Pulse Oximetry [address] Méndez rn clinical documentation specialist surgery about CT findings of acute on chronic pancreatitis and acute cholecystitis possibly. I also noted his coagulopathy and transamitis. He was given vitamin K 5 mg subcutaneously. Proceed to admit with Dr. Penny hospitalist with Dr. Méndez consult. Given IV fluids and pain control and zosyn in the interim. He was also given lasix and AI nebs and solu-medrol for elevated BNP with possible heart failure exacerbation and COPD exacerbation, respectively. Result Diagrams: 05/21/19 16:40 05/21/19 16:40 - EKG 1 Time of EKG reading by physician:: 16:33 EKG Read and Signed by:: Isaias Calle EKG Interpretation (*Must complete 3 of following elements*): Abnormal Rate: 96 (possible left atrial enlargement ) Rhythm: SR w/PACs w/aberrant conduction QRS: other (prolonged QT) KS Interval: normal ST Wave: normal - XRAY 1 XRAY Study: Chest Impression: See EMR Report (EXAM: CHEST-1 VIEW - 05/21/2019 HISTORY: sob, cp TECHNIQUE: Portable chest one view COMPARISON: 03/11/2018 FINDINGS: Inspiration is somewhat shallow. Lungs appear essentially clear. There is no pleural effusion or pneumothorax identified. There is borderline cardiomegaly. IMPRESSION: Borderline cardiomegaly. Somewhat shallow inspiration. No other evidence of acute disease. Electronically signed by Viajala 05/21/2019 6:00 PM) Comparison with other Films: changes noted - CT/MRI 1 CT Study: Abdomen Impression: See EMR Report (EXAM: CT ABD/PELVIS W/IV CONT ONLY - 05/21/2019 HISTORY: abdominal tenderness, recent pancreatitis TECHNIQUE: CT abdomen/pelvis with intravenous contrast. No oral contrast administered per request of the referring provider. COMPARISON: 12/16/2018 FINDINGS: There is intrahepatic and extrahepatic ductal dilatation which is substantially increased compared to prior. There is a 1 cm stone in the distal common bile duct, which appears mildly larger compared to prior. The gallbladder is substantially distended. There is fluid/edema around the gallbladder. There are multiple pancreatic calcifications and there is dilatation of pancreatic duct, compatible with chronic pancreatitis. There is mild peripancreatic edema, compatible with acute pancreatitis. There are no other acute changes identified in the liver, spleen, or adrenal glands. The kidneys enhance homogeneously except for small cysts. There is no hydronephrosis. There are atherosclerotic calcifications in lumbar spine degenerative changes noted. There is no evidence of bowel obstruction. There is no free air or gas containing abscess identified. IMPRESSION: Apparent 1 cm obstructing stone in the distal common bile duct, with intrahepatic and extrahepatic biliary ductal dilatation. The gallbladder is substantially distended, and there is pericholecystic fluid/edema. The possibility of cholecystitis cannot be excluded. Chronic and mild acute pancreatitis. This exam was performed using automated exposure control, adjustment of mA or kV according to patient size, and/or use of iterative reconstruction technique. Electronically signed by Viajala 05/21/2019 6:21 PM) Comparison with other Films: no prior study Departure - Departure Date of Disposition Decision: 05/21/19 Time of Disposition Decision: 21:09 DIAGNOSIS: Acute cholecystitis due to biliary calculus, Acute on chronic pancreatitis, CHF exacerbation, COPD exacerbation, Warfarin-induced coagulopathy Disposition: ADMITTED INPATIENT 09 Certified Medical Emergency: Urgent Condition: Fair Referrals and Follow-Ups: Stefania Hogan MD [Primary Care Provider] - - Critical Care Note This patient required my direct & personal management of CC.: No Attestation - Physician/ SP Attestation Patient care was provided by Advanced Practice Provider:: No The physician spent face to face time with patient:: Yes Advanced Practice Provider documentation review:: Supervising physician onsite and consulted in the evaluation and care of this patient. The physician did have a face to face encounter with the patient. This chart was documented by the indicated scribe, (Miya Leung Scribe) and accurately reflects the services I performed and decisions made by me, Isaias Calle MD, as attested by the provider's signature.
[2019-05-21] MEDS ORDERED: ZOFRAN IV PRN (21:45)
[2019-05-21] MEDS ORDERED: TYLENOL PO PRN (21:45)
[2019-05-21] MEDS: DUONEB (A & A) INH SCH (22:13)
[2019-05-21] MEDS: FLOMAX PO SCH (23:51)
[2019-05-21] MEDS: POTASSIUM CHLORIDE 10 MEQ in NS 1,000 ML IV SCH (23:52)
[2019-05-21] MEDS: HUMALOG SUBQ SCH (23:52)
[2019-05-22] MEDS ORDERED: STERILE WATER INJ. INJ ONE (00:37)
[2019-05-22] MEDS ORDERED: GEODON IM ONE (00:37)
[2019-05-22] MEDS ORDERED: MAGNESIUM SULFATE 4 GM/S.W.I. 4 GM/100 ML IVPB IV ONE (00:39)
[2019-05-22] MEDS: DUONEB (A & A) INH SCH ×5 (03:24→23:57)
[2019-05-22] MEDS: ZOSYN 3.375 GM in NS 50 ML IV SCH ×4 (03:54→21:18)
--- NOTE | 2019-05-22 06:02 | HISTORY AND PHYSICAL ---
REASON FOR ADMISSION: Difficulty breathing for 2 days. PRIMARY CARE PHYSICIAN: Dr. Hogan. HISTORY OF PRESENT ILLNESS: Mr. Nakul Kim is a 79-year-old man with a past medical history of chronic pancreatitis, alcohol and tobacco abuse, even though he denies using either, benign prostatic hyperplasia, right lower extremity DVT, coronary artery disease status post stent in 2015, type 2 diabetes, hypertension, hyperlipidemia. Two-day history of progressive shortness of breath, worse with exertion. For the record, I would like to state that the patient is an extremely poor historian. This is compounded by the fact that he is hard of hearing. When I questioned him further as to what he meant by difficulty breathing, he stated that whenever he tries to take a deep breath he has pain in the epigastrium. He said the pain is not constant, only occurs when he tries to take a deep breath. He denies any cough, any fever, chills, chest pain, PND, orthopnea. No leg swelling. He denies any nausea, vomiting, or diarrhea. No genitourinary complaints. He says his breathing has been slightly improved since receiving a breathing treatment in the ER. REVIEW OF SYSTEMS: Somewhat limited due to patient's very poor ability to understand certain questions, but he denies any polyuria or polydipsia or any focal. ALLERGIES: None. HOME MEDICATIONS: He is on aspirin 325 mg daily, atorvastatin 80 mg daily, and finasteride 5 mg daily, potassium chloride 20 mEq daily, metformin 500 mg daily, Lopressor 50 mg daily, hydrocodone 7.5 q.6h p.r.n., [place] fish oil capsules 1 b.i.d., multivitamin tablets once a day, Flomax 0.4 mg b.i.d., warfarin 5 mg as directed. SURGICAL: Right total knee replacement, FAMILY HISTORY: Patient denies any GI complaints or any cancers. SOCIAL HISTORY: He denies any smoking or drinking. LABORATORY WORK: White count normal hemoglobin and hematocrit 13 and 39, platelets 193,000 with 83% neutrophils. Sodium is 135, potassium 3.3, BUN 11, creatinine 0.8, glucose 144, total bilirubin 2.8. AST 506, ALT 476, alkaline phosphatase 433. Troponin is negative, proBNP 3700, lipase 277. PT 62, INR 7, PTT 52. Urinalysis shows trace protein, small bilirubin. CT abdomen and pelvis: A 1 cm obstructing stone in the distal common bile duct with intrahepatic and extrahepatic biliary dilation and the gallbladder substantially distended with pericholecystic fluid and edema. The patient has chronic mild acute pancreatitis. Also noted chest film borderline cardiomegaly with shallow inspiratory effort. CT head done showed no visible acute intracranial abnormality. PHYSICAL EXAMINATION: VITAL SIGNS: Blood pressure is 145/70, heart rate 102, respiratory rate is 24, temperature is 99.1. His O2 sats is 94% on room air. GENERAL: Elderly man who is hard of hearing. He is alert and oriented to person and place. HEENT: Head is normocephalic, atraumatic. Eyes: PERRLA. EOMI. He is icteric and pale. ENT EXAM: Oral examination is grossly normal. Some cyanosis. NECK: Supple. No JVD or carotid bruit. No thyromegaly. CHEST: Few scattered wheezes on the right compared to the left. Decreased air entry in the bases. CARDIOVASCULAR: First and second heart sounds heard. No gallops, rubs. Rhythm is irregular. ABDOMEN: Slightly protuberant, soft, with mild epigastric tenderness. No peritoneal signs. Bowel sounds are hypoactive. RECTAL: Deferred at this time. EXTREMITIES: Patient has good distal pulse volumes, irregular but symmetrical. No clubbing or peripheral cyanosis. NEUROLOGIC: No gross focal deficits, no tremors. SKIN: Intact. No breakdown, lesion or erythema. MUSCULOSKELETAL: Grossly normal. ASSESSMENT: 1. Acute cholecystitis. 2. Acute on chronic pancreatitis. 3. Biliary obstruction with obstructive jaundice. 4. Type 2 diabetes. 5. Hypertension. 6. Hyperlipidemia. 7. Coronary artery disease. 8. Probable atrial fibrillation. 9. History of right lower extremity deep vein thrombosis. 10. Benign prostatic hypertrophy. PLAN: Dr. Méndez, general surgeon, was notified. He felt at this point in time, surgery is not immediately needed. The patient will need to be stabilized if surgery is going to be required. The patient is a very poor surgical candidate. So possibly, the patient may need a cholecystostomy drainage procedure per which Radiology may perform. Also, I will need to get gastroenterology to come by and do an endoscopic retrograde cholangiopancreatography to remove stone in distal bile duct, if the bilirubin continues to increase. Empiric antibiotics with Zosyn will be administered. The patient be kept NPO during the interim of the next 48 hours to allow for resolution of acute on chronic pancreatitis. Fluid support will also be given. The patient has history of chronic obstructive pulmonary disease and breathing treatments will be given and the patient will be reassessed after 24 hours. The patient's INR is elevated. Vitamin K has been given. PT/INR will be followed daily in anticipation for possible procedures. cc: MD Stefania Mclain MD MTDD
[2019-05-22 07:39] LABS: INR 5.14; PROTIME 49.3 Seconds (11.0-16.0)
[2019-05-22] MEDS: HUMALOG SUBQ SCH ×4 (07:47→21:29)
[2019-05-22 08:01] LABS: AGAP 14; ALB/GLOB RATIO 1.1; ALBUMIN 3.5 g/dL (3.5-5.0); ALKALINE PHOSPHATASE 362 U/L (32-122); BUN 12 mg/dL (8-22); CALCIUM 9.1 mg/dL (8.8-10.2); CHLORIDE 100 mmol/L (98-107); COSMO 285; CREATININE 0.9 mg/dL (0.7-1.2); ESTIMATED GFR > 60; GLUCOSE 236 mg/dL (70-104); GOT 385 U/L (10-34); GPT 483 U/L (10-44); POTASSIUM 2.9 mmol/L (3.5-5.1); SODIUM 139 mmol/L (136-145); TCO2 25 mmol/L (25-35); TOTAL BILIRUBIN 3.31 mg/dL (0.20-1.00); TOTAL PROTEIN 6.7 g/dL (6.3-8.3)
--- NOTE | 2019-05-22 08:02 | EKG Report ---
Test Performed on : 05/21/2019 4:33:04 PM Test Reason : ED. NO EKG ORDER FOR MUSE Blood Pressure : / mmHG Vent. Rate : 096 BPM Atrial Rate : 096 BPM P-R Int : 178 ms QRS Dur : 094 ms QT Int : 384 ms P-R-T Axes : 060 053 065 degrees QTc Int : 485 ms Sinus rhythm. with premature atrial complexes. with aberrant conduction. Possible Left atrial enlargement Prolonged QT Abnormal ECG When compared with ECG of 01-MAR-2018 08:43, aberrant conduction. is now present Unconfirmed Result
[2019-05-22] MEDS: MORPHINE IV PRN ×2 (08:14→17:21)
[2019-05-22] MEDS: POTASSIUM CHLORIDE 10 MEQ in NS 1,000 ML IV SCH (08:14)
[2019-05-22 08:21] LABS: HEMATOCRIT 39.7 % (42.0-52.0); HEMOGLOBIN 13.3 g/dL (14.0-18.0); IMM GRAN# 0.02 X1000 (0.0-0.04); IMM GRAN% 0.2 % (0.0-0.5); LYMPH# 0.33 X1000 (1.2-3.4); LYMPH% 3.2 % (20.5-51.1); MCH 30.2 PG (27-31); MCHC 33.5 g/dL (33-37); MCV 90.2 FL (81-99); MONO% 5.8 % (1.7-9.3); MPV 10.4 FL (7.4-10.4); NEUT# 9.48 X1000 (1.4-6.5); NEUT% 90.8 % (42.2-75.2); PLT 152 X1000 (130-400); WBC 10.43 X1000 (4.8-10.8)
[2019-05-22 08:34] LABS: BANDS 2 % (0-1); HYPOCHROM 1+; LYMPHS 2 % (21-51); MONO 10 % (1-9); POIKILOCYTOSIS 1+; SEGS 86 % (42-75)
[2019-05-22] MEDS: FLOMAX PO SCH ×2 (09:43→21:18)
[2019-05-22] MEDS: KLOR-CON PO SCH (09:43)
[2019-05-22] MEDS: LIPITOR PO SCH (09:43)
[2019-05-22] MEDS: LOPRESSOR PO SCH (09:45)
--- NOTE | 2019-05-22 11:39 | Diag Imaging Result Doc PS360 ---
EXAM: US ABDOMEN-COMPLETE HISTORY: suspected acute cholecystitis TECHNIQUE: Abdominal ultrasound COMPARISON: None. FINDINGS: The aorta and pancreas are obscured by overlying bowel. Inferior vena cava is poorly seen. Normal right kidney. No hydronephrosis. There is fatty infiltration of the liver. No focal hepatic abnormality. Normal right kidney. No hydronephrosis. The gallbladder is overly distended. There is wall thickening. No calcified stones. Normal left kidney. No hydronephrosis. Normal spleen. The common bile duct is poorly seen. IMPRESSION: 1.Acalculous cholecystitis 2.There is fatty infiltration of the liverS Electronically signed by Yovani Johns 05/22/2019 11:36 AM
[2019-05-22 12:32] LABS: INR 3.98
[2019-05-22 12:42] LABS: PROTIME 40.1 Seconds (11.0-16.0)
--- NOTE | 2019-05-22 13:07 | CONSULTATION ---
DATE OF CONSULTATION: 05/22/2019 REASON FOR CONSULTATION: We were asked to see Mr. Nakul Kim by our hospitalist because of gallstones. HISTORY OF PRESENT ILLNESS: Mr. Nakul Kim is a 79-year-old white male who was admitted with elevated liver function tests and epigastric abdominal pain. A CT scan suggests stone in his distal common bile duct and a distended gallbladder. MEDICATIONS: Aspirin 325 mg p.o. daily, atorvastatin 80 mg daily, finasteride 5 mg daily, a vitamin daily, [place] 10 every 6 hours p.r.n., metoprolol 50 mg p.o. daily, metformin 500 mg p.o. daily, omega-3 fatty acids 1 tablet p.o. b.i.d., potassium chloride 20 mEq p.o. daily, warfarin 5 mg p.o. as directed, and Flomax 0.4 mg p.o. b.i.d. ALLERGIES: No known drug allergies. SOCIAL HISTORY: He is retired. He is . Former smoker. PAST MEDICAL HISTORY: Coronary artery disease, history of blood clots, hypertension, hyperlipidemia, myocardial infarction, history of pancreatitis, gastroesophageal reflux disease, prostate enlargement. FAMILY HISTORY: Reviewed and it was noncontributory. REVIEW OF SYSTEMS: A review of systems was performed. A 14-point review of systems was reviewed and was essentially negative except for the History of Present Illness. PHYSICAL EXAMINATION: General: Mr. Nakul Kim is an older white male. He is 5 feet 11 inches, 172 pounds. He is awake and cooperative, in no acute distress. HEENT: He could have had mild jaundice. No oral lesions. Lymphatics: No cervical or supraclavicular lymphadenopathy. Heart: His heart has regular rate. Lungs: Clear except for some expiratory wheezing. Abdomen: His abdomen was soft. I could not palpate his gallbladder. He does have a small reducible umbilical hernia. There was not significant abdominal tenderness. No costovertebral tenderness. Rectal: Exam was not performed. Extremities: He does have palpable femoral pulses. No peripheral edema. Neurological: He no focal deficit. DIAGNOSTIC DATA: CT scan suggests a distended gallbladder and a possible stone in the distal common duct with elevated liver function tests. He is anticoagulated. PLAN: Dr. Elizondo's team has seen the patient, and I think they plan an ERCP tomorrow. He is still anticoagulated today. Probably, it would be best to proceed with laparoscopic cholecystectomy during this hospitalization. cc: Elda Casillas MD
--- NOTE | 2019-05-22 14:19 | PROGRESS NOTE ---
DATE: 05/22/2019 SUBJECTIVE: Patient reports having mild abdominal pain in the right upper quadrant. He reports no shortness of breath at rest. OBJECTIVE: Vital Signs: Temperature degrees 98, heart rate 75, respiratory 2, blood pressure 116/79, O2 saturations 96% on 2 L nasal cannula. General: This is a chronically ill-appearing, 79-year-old male, lying in bed, in no acute distress. HEENT: Head is normocephalic, atraumatic. Icteric sclerae and pale conjunctivae. Neck: No JVD noted. No carotid bruits. No lymphadenopathy. No thyromegaly. Cardiovascular: S1, S2 heard. No murmurs, gallops, or rubs. Heart rhythm is irregularly, irregular. Abdomen: Slightly protuberant. Mild tenderness to palpation in the right upper quadrant but no signs of peritoneal irritation. Extremities: No clubbing, cyanosis, or edema. Peripheral pulses present in both legs. Neurological: Patient is alert and oriented x3. Moves all 4 extremities. LABORATORY DATA: Reviewed. The INR is 3.98, potassium 2.9, creatinine 0.9, glucose 236. ASSESSMENT AND PLAN: 1. Acute cholecystitis/choledocholithiasis. The patient has been evaluated by GI. They have ordered FFP to correct coagulopathy, and they are going to do ERCP tomorrow. We will follow recommendations. 2. Sbydo-eg-opnbwhu pancreatitis. Will continue with IV fluids and pain medications. 3. Diabetes mellitus type 2. We will continue with insulin sliding scale and Accu-Chek before meals and also at bedtime. 4. Hypertension. Blood pressure is under control. We will continue with the same management. 5. Coronary artery disease. Patient is not having any chest pain. We will continue to monitor. DISPOSITION: We will continue to monitor this patient closely. We will replenish electrolytes. cc: Martínez Rooney MD
[2019-05-22] MEDS ORDERED: STERILE WATER INJ. INJ PRN (17:04)
[2019-05-22] MEDS ORDERED: NS 1,000 ML IV ONE (17:05)
--- NOTE | 2019-05-22 17:59 | GASTROENTEROLOGY CONSULTATION ---
DATE: 05/22/2019 REASON FOR CONSULTATION: Abnormal CT scan showing stone in the common bile duct, along with elevated liver function tests. HISTORY OF PRESENT ILLNESS: This is a 79-year-old male. At the time of my evaluation there was no family at the bedside. I have called and spoken with his son, Jackson, briefly on the phone who states that the patient lives with him, and he went in to check on him yesterday and he had profuse diaphoresis. Apparently, he had some shortness of breath and he was brought in to the hospital for further evaluation. The patient is a poor historian. He does not really know any details of his admission. As noted, I have spoken with the son who helped briefly with review of systems over the phone. During admission evaluation, he had an abdominal and pelvis CT scan that showed an apparent 1 cm obstructive stone in the distal common bile duct with intrahepatic and extrahepatic biliary duct dilation. The gallbladder was substantially distended with pericholecystic fluid and edema, along with noted chronic and mild acute pancreatitis. His liver function tests are elevated. PAST MEDICAL HISTORY: Chronic pancreatitis, history of alcohol and tobacco use. The patient's son states he has not had alcohol in over 6 to 8 months. The patient does have a history of cardiovascular stents. He is on Coumadin. On admission, his PT/INR was elevated, 6.97. He has received a dose of vitamin K. Today his PT/INR were 49.3 and 5.14. Other history including BPH, right lower extremity DVT, coronary artery disease with a history of stent, type 2 diabetes, hypertension, hyperlipidemia. PAST SURGICAL HISTORY: Right total knee replacement, cardiovascular stent placement. ALLERGIES: No known drug allergies. HOME MEDICATIONS: Aspirin 325 mg daily, atorvastatin 80 mg daily, finasteride 5 mg daily, multivitamin daily, hydrocodone 10/325 every 6 hours as needed, metformin 500 mg daily, metoprolol 50 mg daily, omega-3 twice a day, potassium 20 mEq daily, tamsulosin 0.4 mg twice a day, Coumadin 5 mg as directed. SOCIAL HISTORY: History of tobacco and alcohol use, but none lately. The patient's son states he has not had any alcohol in over 6 to 8 months. REVIEW OF SYSTEMS: Per History of Present Illness. PHYSICAL EXAMINATION: Vital Signs: Temperature 98 degrees, pulse 75, respirations 21, blood pressure 116/79. General: The patient is awake. He is alert, but not necessarily oriented to time or place. He did not know why he was admitted to the hospital. HEENT: Normocephalic, atraumatic. Pupils equal, round, reactive to light. Respiratory: With some wheezing noted. Cardiovascular: Regular rate and rhythm. Abdomen: Soft, nontender at present time with positive bowel sounds. Extremities: No lower extremity edema noted. LABORATORY: Hematology: WBC 10.43, hemoglobin 13.3, hematocrit 39.7, MCV 90.2, platelet 152,000. Coagulation: Prothrombin time 49.3, PT/INR 5.14, PTT 52.7. Chemistry: Sodium 139, potassium 2.9, chloride 100, CO2 of 25, BUN 12, creatinine 0.9, glucose 236, total bilirubin 3.31, AST 385, ALT 483, alkaline phosphatase 362, magnesium 1.1, amylase 163, lipase 187. ASSESSMENT: 1. Biliary obstruction with elevated liver function tests. 2. Cholecystitis. 3. Acute/chronic pancreatitis. 4. Other medical problems including diabetes, hypertension, hyperlipidemia, heart disease with history of cardiovascular stent placement on anticoagulation. PLAN: Continue current management. We will keep n.p.o. for planned for ERCP possibly today. Due to his elevated PT/INR, we will give him 2 units of fresh frozen plasma and repeat his PT/INR before the planned procedure. Further plans to be made as needed. Patient is a poor historian. I have called and spoken with the patient's son, Jackson, who does give consent for him to receive fresh frozen plasma and proceed with ERCP procedure. I have discussed benefits and risks, along with plan of care, and son wishes to proceed. I have discussed this case with Dr. Elizondo. Thank you for this consultation. Dictated by ABRAHAN Scales for Pito Elizondo MD cc: ABRAHAN Smith MD [facility]
[2019-05-22] MEDS ORDERED: LASIX IV ONE (18:00)
[2019-05-22] MEDS: POTASSIUM CHLORIDE 20 MEQ/SWI 20 MEQ/100 ML IVPB IV SCH (18:36)
[2019-05-22] MEDS: GEODON IM PRN ×2 (18:59→23:25)
[2019-05-23] MEDS: POTASSIUM CHLORIDE 20 MEQ/SWI 20 MEQ/100 ML IVPB IV SCH (01:53)
[2019-05-23] MEDS: DUONEB (A & A) INH SCH ×6 (03:39→23:23)
[2019-05-23] MEDS: ZOSYN 3.375 GM in NS 50 ML IV SCH ×4 (03:54→22:24)
[2019-05-23] MEDS: HUMALOG SUBQ SCH ×4 (06:00→22:25)
[2019-05-23 06:56] LABS: HEMATOCRIT 41.8 % (42.0-52.0); HEMOGLOBIN 13.7 g/dL (14.0-18.0); IMM GRAN# 0.03 X1000 (0.0-0.04); IMM GRAN% 0.3 % (0.0-0.5); LYMPH# 0.42 X1000 (1.2-3.4); LYMPH% 3.6 % (20.5-51.1); MCH 29.8 PG (27-31); MCHC 32.8 g/dL (33-37); MCV 90.9 FL (81-99); MONO# 0.76 X1000 (0.11-0.59); MONO% 6.6 % (1.7-9.3); MPV 10.4 FL (7.4-10.4); NEUT# 10.33 X1000 (1.4-6.5); NEUT% 89.5 % (42.2-75.2); PLT 185 X1000 (130-400); RDW 14.4 % (11.5-14.5); WBC 11.54 X1000 (4.8-10.8)
[2019-05-23 07:06] LABS: INR 1.4; PROTIME 17.4 Seconds (11.0-16.0)
[2019-05-23 07:36] LABS: AGAP 14; ALB/GLOB RATIO 1.1; ALBUMIN 3.7 g/dL (3.5-5.0); ALKALINE PHOSPHATASE 303 U/L (32-122); BUN 20 mg/dL (8-22); CALCIUM 8.7 mg/dL (8.8-10.2); CHLORIDE 99 mmol/L (98-107); COSMO 284; ESTIMATED GFR > 60; GLUCOSE 136 mg/dL (70-104); GOT 270 U/L (10-34); GPT 428 U/L (10-44); POTASSIUM 3.5 mmol/L (3.5-5.1); SODIUM 140 mmol/L (136-145); TCO2 27 mmol/L (25-35)
--- NOTE | 2019-05-23 08:22 | Diag Imaging Result Doc PS360 ---
EXAM: CHEST-2 VIEWS INDICATION: sob TECHNIQUE: 3 views COMPARISON: 05/21/2019 FINDINGS: Inspiration is suboptimal. There is increased linear density at the lung bases most compatible with subsegmental atelectasis. No definite new consolidation is identified, otherwise. There is no discrete pleural fluid collection or pneumothorax. Cardiac silhouette is stable. IMPRESSION: Development of mild bibasilar atelectasis. Electronically signed by Jose Leung 05/23/2019 8:19 AM
[2019-05-23] MEDS: LIPITOR PO SCH (09:37)
[2019-05-23] MEDS: KLOR-CON PO SCH (09:37)
[2019-05-23] MEDS: FLOMAX PO SCH ×2 (09:37→22:24)
[2019-05-23] MEDS: LOPRESSOR PO SCH (09:37)
[2019-05-23] MEDS ORDERED: FENTANYL ONE (12:25)
[2019-05-23] MEDS ORDERED: DIPRIVAN 1% 500 MG/50 ML BOTTLE ONE (12:25)
[2019-05-23] MEDS ORDERED: XYLOCAINE-MPF 2% ONE (12:25)
[2019-05-23] MEDS ORDERED: DUONEB (A & A) INH ONE (12:34)
[2019-05-23] MEDS ORDERED: KETAMINE ONE (13:40)
--- NOTE | 2019-05-23 14:33 | ENDOSCOPY OPERATIVE NOTE ---
[facility] ENDOSCOPY OPERATIVE NOTE , ERCP PROCEDURE REPORT EXAM DATE: 05/23/2019 PATIENT NAME: Nakul Kim MR #: [id number] BIRTHDATE: 1940 ATTENDING: Pito Elizondo MD STATUS: inpatient HAIR SPECIALIST: Stef Saravia, Mayuri Weldon, and Miri Farrell INDICATIONS: The patient is a 79 yr old male here for an ERCP due to established bile duct stone(s). PROCEDURE PERFORMED: ERCP with sphincterotomy/papillotomy ERCP with removal of calculus/calculi ERCP with stent placement MEDICATIONS: Per Anesthesia CONSENT: The patient understands the risks and benefits of the procedure and understands that these r isks include, but are not limited to: sedation, allergic reaction, infection, perforation and/or bleeding. Alternative means of evaluation and treatment include, among others: physical exam, x-rays, and/or surgical intervention. The patient elects to proceed with this endoscopic procedure. HISTORY AND PHYSICAL: 05/23/2019 DESCRIPTION OF PROCEDURE: During intra-op preparation period all mechanical and medical equipment was checked for proper function. Hand hygiene and appropriate measures for infection prevention was taken. After the risks, benefits and alternatives of the procedure were thoroughly explained, Informed was verified, confirmed and timeout was successfully executed by the treatment team. With the patient in left semi-prone position, medications were admini stered intravenously.The [id number] ([id number]) was passed from the mouth into the esophagus and further advanc ed from the esophagus into the stomach. From stomach scope was directed to the second portion of the duodenum. M ajor papilla was aligned with the duodenoscope. The scope position was confirmed fluoroscopically. Rest of the finding s/therapeutics are given below. The scope was then completely withdrawn from the patient and the procedure completed. Th e pulse, BP, and O2 saturation were monitored and documented by the physician and the nursing staff throughout the ent zoya procedure. The patient was cared for as planned according to standard protocol. The patient was then discharged to [facility] in stable condition and with appropriate post procedure care. ERCP: A ice cream mixer film prior to endoscope insertion appeared normal. The Major Papilla was located in t he second portion of the duodenum. The major papilla was enlarged. Bile duct cannulation was attempted using the sph incterotome with guidewire. Cannulation of the bile duct was performed with ease. Deep cannulation was successfully achieved. A cholangiogram releaved there was a dilation of the common hepatic duct and CBD up to 15mm. With flaquita dewire within the bile duct, a large biliary sphincterotomy was performed. A stone extraction was attempted using a s tone extraction balloon. The bile duct was swept three times. Sludge was removed from the bile duct. A single ston e was removed from the bile duct. Under endoscopic and fluoroscopic guidance, a 10Fr X 5cm plastic stent was placed in the bile duct. ADVERSE EVENT: There were no complications. IMPRESSIONS: 1. Dilated common bile duct 2. Common bile duct stone(s) 3. Common bile duct stone(s) 4. Plastic stent placement RECOMMENDATIONS: 1. Start Clear liquid diet for 1 Day(s) 2. Disposition 3. Repeat liver function test in 1 day(s) 4. Return to floor when standard parameters are met REPEAT EXAM: Return in 6 weeks for ERCP. Pito Elizondo MD eSigned: Pito Elizondo MD 05/23/2019 2:33 PM cc: Stefania Hogan MD PATIENT NAME: Nakul Kim MR#: [id number]
--- NOTE | 2019-05-23 14:40 | Diag Imaging Result Doc PS360 ---
EXAM: ERCP-BILIARY AND PANCREATIC INDICATION: biliary obstruction TECHNIQUE: COMPARISON: None. FINDINGS: Five spot fluoroscopic images were provided, which were performed during ERCP and biliary stent placement by Dr. Elizondo. The common bile duct appears dilated and there is a suggestion of vague filling defects at the distal end of the common bile duct that may represent ductal stones. On the final image, the newly placed biliary stent is identified in the expected position. IMPRESSION: As above. Please correlate with live fluoroscopic imaging. Electronically signed by Jose Leung 05/23/2019 2:38 PM
--- NOTE | 2019-05-23 17:24 | PROGRESS NOTE ---
DATE: 05/12/2019 SUBJECTIVE: Mr. Nakul Kim is a 79-year-old white male who had stones in his common duct and underwent ERCP today per Dr. Elizondo. He will need a cholecystectomy and probably be most efficient do it during this hospitalization. He is on chronic Coumadin. PLAN: I will be out of town tomorrow and I will look to post him for laparoscopic cholecystectomy or Wednesday. cc: Elda Casillas MD
[2019-05-23] MEDS ORDERED: PRILOSEC PO ONE (17:53)
--- NOTE | 2019-05-23 18:11 | PROGRESS NOTE ---
DATE: 05/23/2019 INTERVAL HISTORY: Mr. Kim underwent an ERCP, where he was found to have a bile duct stone which was removed, and a plastic stent was placed, which he tolerated well. SUBJECTIVE: The patient is sleepy, hearing impaired, not in acute distress. Family is at bedside. VITALS: Temperature of 97, pulse of 94, respiratory 20, blood pressure 120/80, saturating 94% on room air. PHYSICAL EXAMINATION: General: Does not appear in any acute distress. HEENT: Oral cavity is moist. Lungs: Air entry bilaterally equal. No rhonchi. He does have bilateral end-expiratory wheezes. Cardiovascular: S1, S2 normal. Regular. Tachycardic. No murmur, rub, or gallop. Abdomen: Soft, nontender. Extremities: No lower extremity edema. Neurologic: He is alert. He has hearing impairment. LABS: Suggestive of mild leukocytosis, normocytic anemia, normal platelet count. His INR is 1.4. He does have resolution of hypokalemia. He continues to have transaminitis, elevated bilirubin. No positive microbiological data. IMAGING: Chest x-ray today in the morning did have development of basilar atelectasis. ASSESSMENT AND PLAN: 1. Choledocholithiasis leading to acute cholecystitis, status post ERCP and stone extraction on May 23. Appreciate GI recommendation. He may undergo laparoscopic cholecystectomy on or Wednesday. 2. Acute wheezing. He does not have a known diagnosis of chronic obstructive pulmonary disease, though he does have prior history of smoking. I will continue him on albuterol/ipratropium nebulization and will give him steroids. I will also continue him on intravenous antibiotics for his acute cholecystitis. 3. Diabetes mellitus type 2. Continue sliding-scale insulin. 4. Essential hypertension. I will continue his home atorvastatin, metoprolol. 5. History of right lower extremity deep venous thrombosis. I am holding his Coumadin and will keep him on enoxaparin. 6. Others. He does have a history of coronary artery disease, status post stent in 2014, and hyperlipidemia, for which I will continue his home atorvastatin, metoprolol. DISPOSITION: Continue to monitor patient inside the hospital. Plan of care discussed with him. His questions were answered. The patient's family members were at bedside. Their questions have been answered. cc: Jase Campbell MD
[2019-05-23] MEDS: SOLU-MEDROL IV SCH (18:22)
[2019-05-24] MEDS: DUONEB (A & A) INH SCH ×6 (03:27→23:15)
[2019-05-24] MEDS: ZOSYN 3.375 GM in NS 50 ML IV SCH ×4 (04:00→21:16)
[2019-05-24] MEDS: HUMALOG SUBQ SCH ×4 (06:25→21:17)
[2019-05-24] MEDS: PRILOSEC PO SCH (06:25)
[2019-05-24 07:05] LABS: INR 1.24; PROTIME 15.8 Seconds (11.0-16.0)
[2019-05-24 07:07] LABS: HEMATOCRIT 34.2 % (42.0-52.0); HEMOGLOBIN 11.1 g/dL (14.0-18.0); LYMPH# 0.34 X1000 (1.2-3.4); LYMPH% 3.7 % (20.5-51.1); MCH 29.8 PG (27-31); MCHC 32.5 g/dL (33-37); MCV 91.7 FL (81-99); MONO# 0.46 X1000 (0.11-0.59); MPV 10.6 FL (7.4-10.4); NEUT# 8.31 X1000 (1.4-6.5); NEUT% 91.3 % (42.2-75.2); PLT 146 X1000 (130-400); RBC 3.73 XMIL (4.7-6.1); RDW 14.1 % (11.5-14.5); WBC 9.11 X1000 (4.8-10.8)
[2019-05-24 07:40] LABS: AGAP 12; ALBUMIN 3.1 g/dL (3.5-5.0); ALKALINE PHOSPHATASE 193 U/L (32-122); BUN 26 mg/dL (8-22); CALCIUM 8.2 mg/dL (8.8-10.2); CHLORIDE 97 mmol/L (98-107); COSMO 278; ESTIMATED GFR > 60; GLUCOSE 153 mg/dL (70-104); GOT 95 U/L (10-34); GPT 249 U/L (10-44); POTASSIUM 2.9 mmol/L (3.5-5.1); SODIUM 135 mmol/L (136-145); TCO2 26 mmol/L (25-35); TOTAL BILIRUBIN 2.18 mg/dL (0.20-1.00); TOTAL PROTEIN 6.2 g/dL (6.3-8.3)
[2019-05-24] MEDS ORDERED: ASPIRIN PO SCH (09:00)
[2019-05-24] MEDS: KLOR-CON PO SCH ×3 (10:57→19:33)
[2019-05-24] MEDS: LIPITOR PO SCH (10:57)
[2019-05-24] MEDS: LOPRESSOR PO SCH (10:57)
[2019-05-24] MEDS: FLOMAX PO SCH ×2 (10:57→21:15)
--- NOTE | 2019-05-24 15:17 | GASTROENTEROLOGY PROGRESS NOTE ---
DATE: 05/24/2019 SUBJECTIVE: The patient was awake at the time of my visit. He was a little more alert today. He had an ERCP on 05/23/2019 findings showed common bile duct stones and sphincterotomy was performed and a stent was placed. Liver function tests have improved some today. I believe there are plans for him to have cholecystectomy towards the end of the week. He has been seen by [facility]. OBJECTIVE: Vital signs: Temperature 97.8 degrees, pulse 64, respirations 20, blood pressure 121/53. Generally, patient is awake and alert. Abdomen is soft. Positive bowel sounds. Nontender. LABORATORY: Hematology: WBC 9.11, hemoglobin 11.1, hematocrit 34.2, MCV 91.7. Platelet 146,000. PT/INR 15.8, 1.24. Chemistry: Sodium 135, potassium 2.9, chloride 97, CO2 26, BUN 26, creatinine 1.0, glucose 153, calcium 8.2, total bilirubin 2.18, AST 95, ALT 249, alkaline phosphatase 193. ASSESSMENT AND PLAN: 1. Acute cholecystitis. 2. Choledocholithiasis. Patient has had ERCP with sphincterotomy, stone extraction, and stent placement. 3. Other medical problems, diabetes, hypertension, history of DVT. Coumadin currently on hold. 4. His liver function tests have improved slightly today. Will continue to follow. He will need to follow up with us as an outpatient to schedule a repeat ERCP and stent removal. 5. I have called and spoken with the patient's son, Jackson, and instructed him of this plan. I have also left an office card with the phone number to call and make an office visit after discharge. I believe he may have cholecystectomy towards the end of the week. I have discussed this case with Dr. Elizondo. Dictated by ABRAHAN Scales for Pito Elizondo MD cc: ABRAHAN Smith MD
[2019-05-24] MEDS: NS 1,000 ML IV SCH (16:26)
--- NOTE | 2019-05-24 17:07 | PROGRESS NOTE ---
DATE: 05/24/2019 Mr. Nakul Kim is a 79-year-old white male who has gallstones and also a stone in his common bile duct which was removed by ERCP per Dr. Elizondo yesterday. Will plan laparoscopic cholecystectomy tomorrow. I have stopped his Lovenox and aspirin in preparation for that surgery. I discussed the surgery with the patient and his son at the bedside this evening including its risks of bleeding, infection, injury to the extrahepatic bile ducts requiring reoperation, conversion of laparoscopic to open cholecystectomy, bile leak requiring reoperation for drainage, and injury to intra-abdominal contents for trocar placement. They understand the need for surgery and its risks and they want to proceed. cc: Elda Casillas MD
[2019-05-24] MEDS ORDERED: LOVENOX SUBQ SCH (18:00)
[2019-05-24] MEDS: SOLU-MEDROL IV SCH (18:26)
--- NOTE | 2019-05-24 18:33 | PROGRESS NOTE ---
DATE: 05/24/2019 INTERVAL HISTORY: No acute events overnight. He has been eating clear liquid diet. His enoxaparin was discontinued, likely because of planned surgery tomorrow. He is feeling much better. Denies chest pain, shortness of breath, abdominal pain, nausea or vomiting. He had a bowel movement. His sons are at bedside. OBJECTIVE: Vital signs: Temperature 97.9 degrees, pulse 66, respiratory rate 22, blood pressure 99/65, saturating 95% on 2 L nasal cannula. Generally does not appear in any acute distress. Oral cavity is moist. Air entry bilaterally equal. He does not have any wheeze today. No rhonchi or crackles. S1, S2 normal, regular. No murmur or gallop. Abdomen is soft, distended and tympanic to percussion. No tenderness. Active bowel sounds. No lower extremity edema. He is alert and oriented x3. He does have hearing impairment. LABORATORY DATA: Labs suggestive of normocytic anemia, normal platelet count. INR of 1.2. He does have hypokalemia, hyponatremia and hypochloremia which are currently being replenished. His total bilirubin and transaminitis is improving. ASSESSMENT AND PLAN: 1. Choledocholithiasis leading to acute cholecystitis, status post endoscopic retrograde cholangiopancreatography and stone extraction with plastic stent on 05/23. Continue clear liquid diet. Patient scheduled to undergo laparoscopic cholecystectomy on 05/25. I will follow up with serial CMP. 2. Prior history of smoking and episode of wheezing yesterday, likely related to suspected chronic bronchitis and mild acute exacerbation. He improved after nebulization and steroids. I will stop his steroids, as I am anticipating surgery in the next 24 hours. I will continue his intravenous antibiotics for his cholecystitis. 3. Diabetes mellitus type 2. Continue sliding scale. 4. Essential hypertension. Continue home metoprolol and atorvastatin with holding parameters. 5. History of right lower extremity deep venous thrombosis. Continue to hold Coumadin for now. His enoxaparin has also been stopped. According to imaging performed in 2015 he did not have any deep venous thrombosis at that time. 6. History of coronary artery disease, status post stent in 2014, and hyperlipidemia. Continue home atorvastatin. He is listed to be taking aspirin, which I will resume after his surgery. 7. Disposition: We will continue to monitor the patient inside the hospital. Plan of care discussed with him. His questions were answered. cc: Jase Campbell MD
[2019-05-24] MEDS: GEODON IM PRN (19:34)
[2019-05-25] MEDS: ZOSYN 3.375 GM in NS 50 ML IV SCH ×4 (02:12→23:48)
[2019-05-25] MEDS: DUONEB (A & A) INH SCH ×6 (03:37→23:01)
[2019-05-25] MEDS: NS 1,000 ML IV SCH ×2 (04:42→18:05)
[2019-05-25] MEDS: HUMALOG SUBQ SCH ×4 (06:16→23:29)
[2019-05-25] MEDS: PRILOSEC PO SCH (06:16)
[2019-05-25] MEDS: FLOMAX PO SCH ×2 (08:31→23:29)
[2019-05-25] MEDS: KLOR-CON PO SCH (08:31)
[2019-05-25] MEDS: LOPRESSOR PO SCH (08:31)
[2019-05-25] MEDS: LIPITOR PO SCH (08:31)
[2019-05-25 08:43] LABS: AGAP 11; ALBUMIN 2.9 g/dL (3.5-5.0); ALKALINE PHOSPHATASE 161 U/L (32-122); BUN 16 mg/dL (8-22); CALCIUM 8.8 mg/dL (8.8-10.2); CHLORIDE 106 mmol/L (98-107); COSMO 288; CREATININE 0.8 mg/dL (0.7-1.2); ESTIMATED GFR > 60; GLUCOSE 160 mg/dL (70-104); GOT 58 U/L (10-34); GPT 177 U/L (10-44); POTASSIUM 3.3 mmol/L (3.5-5.1); SODIUM 142 mmol/L (136-145); TCO2 25 mmol/L (25-35); TOTAL BILIRUBIN 1.41 mg/dL (0.20-1.00); TOTAL PROTEIN 5.9 g/dL (6.3-8.3)
[2019-05-25] MEDS ORDERED: SENSORCAINE-MPF 0.5%/EPI 1:200,000 ONE (15:27)
[2019-05-25] MEDS ORDERED: DIPRIVAN 1% ONE (15:27)
[2019-05-25] MEDS ORDERED: SODIUM CHLORIDE 0.9% ONE (15:28)
[2019-05-25] MEDS ORDERED: LR 1,000 ML ONE (15:28)
[2019-05-25] MEDS ORDERED: ROBINUL ONE ×2 (15:34→16:36)
[2019-05-25] MEDS ORDERED: FENTANYL ONE (15:54)
[2019-05-25] MEDS ORDERED: XYLOCAINE-MPF 2% ONE (15:56)
[2019-05-25] MEDS ORDERED: NORCURON ONE (15:56)
[2019-05-25] MEDS ORDERED: SODIUM CHLORIDE 0.9% 10 ML ONE (15:56)
[2019-05-25] MEDS ORDERED: LOPRESSOR ONE (16:30)
[2019-05-25] MEDS ORDERED: ZOFRAN ONE (16:33)
[2019-05-25] MEDS ORDERED: NEOSTIGMINE ONE (16:36)
--- NOTE | 2019-05-25 17:32 | Diag Imaging Result Doc PS360 ---
EXAM: OPERATIVE CHOLANGIOGRAM INDICATION: CHOLECYSTITIS ,OC OF GB TECHNIQUE: 2 views COMPARISON: None. FINDINGS: Two spot fluoroscopic images of the opacified common bile duct were provided, which were performed during cholecystectomy by Dr. Pavel Casillas. No discrete filling defects or strictures are identified involving the common bile duct. Contrast passes normally into the small bowel. IMPRESSION: As above. Please correlate with live fluoroscopic imaging. Electronically signed by Jose Leung 05/25/2019 5:30 PM
[2019-05-25] MEDS: POTASSIUM CHLORIDE 20 MEQ/SWI 20 MEQ/100 ML IVPB IV SCH ×2 (18:04→23:27)
[2019-05-25] MEDS: MORPHINE IV PRN ×2 (18:46→23:45)
--- NOTE | 2019-05-25 19:48 | PROGRESS NOTE ---
DATE: 05/25/2019 INTERVAL HISTORY: No acute events overnight. He is still awaiting surgical procedure. Denies new complaints. VITALS: Temperature 98 degrees, pulse 89, respiratory 20 blood pressure 140/86, saturating 96 on room air. PHYSICAL EXAMINATION: Not in acute distress. HEENT: Oral cavity is dry. Lungs: Air entry bilaterally equal. No wheeze, rhonchi, crackles. Heart: Normal. No murmur or gallop. Abdomen: Soft, nontender. On my today's examination there is no right upper quadrant tenderness. Extremities: No lower extremity edema. Neurologic: He is alert. He is oriented to himself. He states he wants to go for surgery and he wants to eat. LABS: No CBC today. BMP suggestive of hypokalemia which is currently being repleted. His blood sugars are slightly elevated. His liver function tests are gradually improving. ASSESSMENT AND PLAN: 1. Choledocholithiasis leading to acute cholecystitis, status post endoscopic retrograde cholangiopancreatography, stone extraction with plastic stent on May 23. The patient awaiting laparoscopic cholecystectomy on May 25. His liver function tests are showing downtrend. I will continue to monitor it. Continue intravenous fluids, intravenous Zosyn and intravenous morphine as needed for pain, which he has not been requiring so far. 2. Mild acute chronic obstructive pulmonary disease exacerbation, improved after albuterol ipratropium nebulization and 2 doses of steroids which I stopped. 3. Others: Continue sliding scale insulin for diabetes mellitus type 2; we will resume his metoprolol atorvastatin with holding parameters for his essential hypertension; I will hold his Coumadin for history of right lower extremity deep vein thrombosis; his supratherapeutic INR on presentation has resolved after fresh frozen plasma; he does have history of coronary artery disease requiring stent in 2015 for which I will resume his aspirin after surgery. DISPOSITION: Awaiting surgery today. Plan of care discussed with the patient and his questions were answered. Yesterday I had an extensive discussion of plan of care with the patient's son at bedside and their questions were answered. cc: Jase Campbell MD
--- NOTE | 2019-05-25 22:21 | OPERATIVE NOTE ---
PROCEDURE DATE: 05/25/2019 PREOPERATIVE DIAGNOSIS: 1. Acute cholecystitis with cholelithiasis. 2. Right lobe of liver mass. 3. Umbilical hernia. POSTOPERATIVE DIAGNOSIS: 1. Acute cholecystitis with cholelithiasis. 2. Right lobe of liver mass. 3. Umbilical hernia. PRINCIPAL PROCEDURE: 1. Laparoscopic cholecystectomy with intraoperative cholangiogram. 2. Core needle biopsy x2 of right liver mass. 3. Open primary repair of umbilical hernia. SURGEON: Elda Casillas MD. PACKAGE DYEING MACHINE OPERATOR: Sandy, remanufacturing technician. ANESTHESIA: General in addition to local anesthetic. ESTIMATED BLOOD LOSS: 30 mL. DRAINS: None. INDICATIONS: Mr. Nakul Kim is a 79-year-old white male who day before yesterday underwent an ERCP because of a common bile duct stone which was obstructing. It was recommended that he get his gallbladder out also during this hospitalization. FINDINGS: His gallbladder was acutely inflamed and had stones within it. We did do an intraoperative cholangiogram, which showed free flow of the dye into the duodenum without evidence of extrahepatic stones or obstruction. There was a stent in the common bile duct. The common hepatic duct and its branches fill. There appeared to be a mass involving the inferior edge of the right lobe of the liver, and core needle biopsies of this mass were taken. No other mass was noted in the liver. The liver otherwise appeared to be healthy. No other intra-abdominal pathology was noted, and we felt we did the operation safely. DESCRIPTION OF PROCEDURE: The patient was brought to the operating room, placed supine, received general anesthesia, was intubated. His abdomen was prepped and draped within a sterile field. He was already on IV Zosyn. We began the procedure by making a curvilinear incision below the umbilicus using a 15 blade scalpel. I introduced a Veress needle through the hernia defect at the umbilicus. Pneumoperitoneum was established, and then I placed an 11 mm trocar through this incision into the abdomen. The camera was placed through this port, and the abdomen was explored for injury. There was none. Three other trocars were placed along the right costal margin under direct vision of the camera. I placed a 11 mm trocar just to the right of the midline and two 5 mm trocars in our midclavicular and anterior axillary lines. Through our most lateral port, the gallbladder was grasped and retracted superiorly along with the right lobe of the liver. Another grasper was used to grab the body of the gallbladder and the triangle of Calot was bluntly dissected. The gallbladder was acutely inflamed and even becoming necrotic. I had identified the cystic duct along its length. I placed a clip at the cystic duct-gallbladder junction. I made a small incision in the cystic duct using hook scissors, and a taut intraoperative cholangiogram catheter was used to perform the cholangiogram with the findings above. Once cholangiogram was completed, 2 clips were placed proximally on the cystic duct and I divided the cystic duct between clips using hook scissors. The cystic artery was identified. A clip was placed distally, 2 proximally. It was divided using hook scissors. The spatula cautery was used to remove the gallbladder from the liver bed. I used an endobag to remove the gallbladder through our umbilical incision. I placed the trocar back through this incision and the area of operation was thoroughly inspected, irrigated, and the irrigation was removed with suction. We had to cauterize some of the liver bed to control bleeding. I then under direct vision of the camera, I used a core needle biopsy device through our most lateral port, and I performed 2 core needle biopsies of this mass involving the inferior lateral right lobe of the liver. The core needle biopsies were sent to the pathologist for permanent section. No other lesion was noted in the liver. At this point, all trocars were removed under direct vision of the camera. The pneumoperitoneum was allowed to dissipate. I raised the umbilical skin up off the hernia defect. It had omentum within it and I excised the hernia sac. I closed the hernia defect primarily with 2 [id number] 2-0 Vicryl stitches. Then I closed all skin incisions with 4-0 Monocryl subcuticular stitches. Dressings were applied. He tolerated the procedure well with plans for him to go to the recovery room and then be readmitted to the floor. cc: Elda Casillas MD
[2019-05-26] MEDS: GEODON IM PRN (02:34)
[2019-05-26] MEDS: ZOSYN 3.375 GM in NS 50 ML IV SCH ×4 (02:36→20:43)
[2019-05-26] MEDS: DUONEB (A & A) INH SCH ×6 (03:25→23:15)
[2019-05-26] MEDS: HUMALOG SUBQ SCH ×4 (06:57→20:50)
[2019-05-26] MEDS: PRILOSEC PO SCH (06:58)
[2019-05-26 08:11] LABS: EOS# 0.01 X1000 (0.0-0.7); EOS% 0.2 % (0.0-10.0); HEMOGLOBIN 11.2 g/dL (14.0-18.0); IMM GRAN# 0.02 X1000 (0.0-0.04); IMM GRAN% 0.3 % (0.0-0.5); LYMPH# 0.89 X1000 (1.2-3.4); LYMPH% 13.8 % (20.5-51.1); MCH 29.5 PG (27-31); MCHC 31.1 g/dL (33-37); MCV 94.7 FL (81-99); MONO# 0.72 X1000 (0.11-0.59); MONO% 11.1 % (1.7-9.3); MPV 10.2 FL (7.4-10.4); NEUT# 4.83 X1000 (1.4-6.5); NEUT% 74.6 % (42.2-75.2); PLT 164 X1000 (130-400); RDW 13.9 % (11.5-14.5); WBC 6.47 X1000 (4.8-10.8)
[2019-05-26 08:26] LABS: AGAP 9; ALBUMIN 2.9 g/dL (3.5-5.0); ALKALINE PHOSPHATASE 152 U/L (32-122); BUN 11 mg/dL (8-22); CALCIUM 8.5 mg/dL (8.8-10.2); CHLORIDE 105 mmol/L (98-107); COSMO 281; CREATININE 0.8 mg/dL (0.7-1.2); ESTIMATED GFR > 60; GLUCOSE 112 mg/dL (70-104); GOT 53 U/L (10-34); GPT 145 U/L (10-44); POTASSIUM 3.6 mmol/L (3.5-5.1); SODIUM 141 mmol/L (136-145); TCO2 27 mmol/L (25-35); TOTAL BILIRUBIN 1.16 mg/dL (0.20-1.00); TOTAL PROTEIN 5.9 g/dL (6.3-8.3)
[2019-05-26] MEDS: LIPITOR PO SCH (09:57)
[2019-05-26] MEDS: LOPRESSOR PO SCH (09:57)
[2019-05-26] MEDS: FLOMAX PO SCH ×2 (09:57→20:43)
[2019-05-26] MEDS: KLOR-CON PO SCH (09:58)
[2019-05-26] MEDS: NS 1,000 ML IV SCH ×2 (09:58→21:10)
[2019-05-26 11:41] LABS: ALLEN TEST YES; BE 3.5 mmoll (-3.0-3.0); BLOOD TYPE ARTERIAL; HCO3-(ACT) 27.6 mmoll (20.0-26.0); METHB 1.3 % (0.0-1.5); O2(CT) 14.8 mL/dL (15.0-23.0); O2HB 92.4 % (95.0-99.0); PCO2(98.6) 40 mmHg (35-45); PO2(98.6) 64 mmHg (60-100); SAMPLE BLOOD; THB 11.4 g/dL (11.5-17.4); pH(98.6) 7.45 (7.35-7.45)
[2019-05-26 11:43] LABS: MODALITY CANNULA
--- NOTE | 2019-05-26 12:10 | PROGRESS NOTE ---
DATE: 05/26/2019 Mr. Nakul Kim is a 79-year-old white male who has undergone ERCP and yesterday I performed a laparoscopic cholecystectomy on him with intraoperative cholangiogram. The cholangiogram showed contrast passing normally into the small bowel with no filling defects status post ERCP. We felt the operation went safely. His gallbladder was acutely inflamed and even becoming gangrenous. No drains were left at the time of surgery and after surgery he went to the recovery room and then return to the 3rd floor. This morning of postop day 1, he is having some wheezing but his abdomen is soft. His liver function tests are improving daily. His white blood cell count is normal. Hematocrit stable at 36%. His electrolytes are within normal limits. BUN of 11, creatinine 0.8. He is on a clear liquid diet and should advance that as tolerated. He can be discharged home as his pulmonary function improves and he is medically stable with followup in our outpatient offices in 7 to 10 days after discharge. cc: Elda Casillas MD
--- NOTE | 2019-05-26 12:13 | PROGRESS NOTE ---
DATE: 05/26/2019 INTERVAL HISTORY: Mr. Kim underwent laparoscopic cholecystectomy, core needle biopsy of right liver mass and open primary repair of umbilical hernia yesterday which he seemed to have tolerated well. The mass was involving the inferior lateral right lobe of the liver. SUBJECTIVE: The patient is very sleepy at the moment and does not engage in clinical encounter meaningfully. He appears to be wheezing for which I have ordered a STAT ABG. VITALS: Temperature 97.8 degrees, pulse 87, respiratory 18, blood pressure 150/80, saturating 97% on 2 L nasal cannula. PHYSICAL EXAMINATION: General: He is wheezy. He is arousable to strong verbal stimuli. He is able to reposition himself in bed. HEENT: On physical examination, his oral cavity is moist. Pulmonary: He has end-expiratory wheezes. No crackles. Cardiac: S1, S2 normal. No murmur, rub, or gallop. Abdomen: Soft. The scars of laparoscopy. Active bowel sounds. Extremities: No lower extremity edema. LABS: He does not have leukocytosis and electrolytes are normal. ASSESSMENT AND PLAN: 1. Choledocholithiasis leading to acute cholecystitis, status post ERCP and laparoscopic cholecystectomy. 2. Acute chronic obstructive pulmonary disease exacerbation. 3. Diabetes mellitus type 2. 4. Hyperlipidemia. PLAN: I will continue him on intravenous antibiotics. Follow up his liver biopsy results. I will give him albuterol ipratropium nebulization, budesonide, formoterol and consider IV steroids. I will update the family about the liver mass later. Plan of care discussed with the patient. However, he is very drowsy. cc: Jase Campbell MD
[2019-05-26] MEDS: SYMBICORT 80/4.5 MICROGM INHALER INH SCH ×2 (12:24→19:28)
[2019-05-26] MEDS: PREDNISONE PO SCH (15:01)
[2019-05-26] MEDS ORDERED: LOVENOX SUBQ SCH (18:00)
[2019-05-26] MEDS: COUMADIN PO SCH (20:43)
[2019-05-27] MEDS: DUONEB (A & A) INH SCH ×6 (02:50→22:53)
[2019-05-27] MEDS: ZOSYN 3.375 GM in NS 50 ML IV SCH ×2 (03:46→09:40)
[2019-05-27] MEDS: HUMALOG SUBQ SCH ×4 (06:07→21:18)
[2019-05-27] MEDS: PRILOSEC PO SCH (06:07)
[2019-05-27] MEDS: SYMBICORT 80/4.5 MICROGM INHALER INH SCH ×2 (07:37→19:25)
[2019-05-27 07:38] LABS: INR 1.23; PROTIME 15.7 Seconds (11.0-16.0)
[2019-05-27 07:51] LABS: AGAP 10; ALBUMIN 2.8 g/dL (3.5-5.0); ALKALINE PHOSPHATASE 137 U/L (32-122); BUN 8 mg/dL (8-22); CHLORIDE 98 mmol/L (98-107); COSMO 266; CREATININE 0.7 mg/dL (0.7-1.2); ESTIMATED GFR > 60; GLUCOSE 119 mg/dL (70-104); GOT 35 U/L (10-34); GPT 118 U/L (10-44); POTASSIUM 3.2 mmol/L (3.5-5.1); SODIUM 133 mmol/L (136-145); TCO2 25 mmol/L (25-35); TOTAL PROTEIN 5.7 g/dL (6.3-8.3)
[2019-05-27] MEDS: LIPITOR PO SCH (09:39)
[2019-05-27] MEDS: KLOR-CON PO SCH ×3 (09:40→18:49)
[2019-05-27] MEDS: PREDNISONE PO SCH (09:40)
[2019-05-27] MEDS: FLOMAX PO SCH ×2 (09:40→21:18)
[2019-05-27] MEDS: ASPIRIN PO SCH (09:40)
[2019-05-27] MEDS: LOPRESSOR PO SCH (09:40)
[2019-05-27] MEDS: LOVENOX SUBQ SCH (09:40)
[2019-05-27] MEDS: GEODON IM PRN (11:41)
[2019-05-27] MEDS: NS 1,000 ML IV SCH (12:42)
--- NOTE | 2019-05-27 13:51 | GENERAL SURGERY PROGRESS NOTE ---
DATE: 05/27/2019 SUBJECTIVE: The patient could not give me any history. He was difficult to arouse. OBJECTIVE: Vital Signs: He is afebrile. Vital signs are stable. General: He is somnolent and partially arousable. I got him to answer me verbally, but not open his eyes or really follow commands. GI: Soft, nontender, nondistended. Incision is clean, dry, and intact. LABORATORY: None. ASSESSMENT AND PLAN: A 79-year-old male status post laparoscopic cholecystectomy and liver biopsy. The pathology is pending. He has been having some pulmonary difficulty. He does have chronic obstructive pulmonary disease. We will keep him on a full liquid diet for now. cc: Eric Hui MD
--- NOTE | 2019-05-27 14:29 | PROGRESS NOTE ---
DATE: 05/27/2019 INTERVAL HISTORY: No acute events overnight. His wheezing had subsided after oral steroid dose. He had a liquid bowel movements so far. He had breakfast in the morning time. His girlfriend is at bedside. The patient is currently sleepy, not in any acute distress. He is easily arousable to verbal stimuli. VITAL SIGNS: Temperature 97 degrees, pulse 69, respirations 16, blood pressure 146/68, saturating 95% on 2 L nasal cannula. PHYSICAL EXAMINATION: General: Not in acute distress. Oral cavity is moist. Lungs: Air entry bilaterally equal. Mild end-expiratory wheezes. No rhonchi or crackles. Cardiovascular: S1, S2 normal. No murmur, rub or gallop. Abdomen: Soft. Scars of laparoscopy. No undue tenderness. Active bowel sounds. Extremities: No lower extremity edema. LABORATORY DATA: No CBC today. He does have a BMP, hypokalemia which is currently being repleted. His liver function tests show continued downtrend. ASSESSMENT AND PLAN: 1. Choledocholithiasis leading to acute cholecystitis, status post ERCP, laparoscopic cholecystectomy. Today is postoperative day 2. I will stop intravenous antibiotics today and have Physical Therapy evaluate him. Continue enoxaparin for deep venous thrombosis prophylaxis and a full liquid diet as per Surgery recommendations. 2. Acute chronic obstructive pulmonary disease exacerbation. Continue albuterol ipratropium nebulization, Symbicort inhalation and oral steroids. 3. Diabetes mellitus type 2, currently well controlled on current regimen of sliding scale insulin. 4. Others. Continue home metoprolol for essential hypertension, atorvastatin for hyperlipidemia, Coumadin for remote history of right lower extremity deep venous thrombosis, metoprolol and atorvastatin for history of coronary artery disease requiring stent in 2014, as well as aspirin. DISPOSITION: Awaiting Physical Therapy evaluation. Plan of care discussed with the patient and his girlfriend at bedside. Their questions were satisfactorily answered. cc: Jase Campbell MD
[2019-05-27] MEDS: COUMADIN PO SCH (21:18)
[2019-05-28] MEDS: DUONEB (A & A) INH SCH ×6 (03:15→23:10)
[2019-05-28] MEDS: PRILOSEC PO SCH ×2 (05:50→06:00)
[2019-05-28] MEDS: HUMALOG SUBQ SCH ×4 (05:59→21:06)
[2019-05-28 07:25] LABS: BASO# 0.01 X1000 (0.0-0.2); BASO% 0.1 % (0.0-0.8); EOS# 0.04 X1000 (0.0-0.7); EOS% 0.5 % (0.0-10.0); HEMATOCRIT 34.4 % (42.0-52.0); HEMOGLOBIN 10.7 g/dL (14.0-18.0); IMM GRAN# 0.05 X1000 (0.0-0.04); IMM GRAN% 0.6 % (0.0-0.5); LYMPH# 1.16 X1000 (1.2-3.4); LYMPH% 13.8 % (20.5-51.1); MCH 29.2 PG (27-31); MCHC 31.1 g/dL (33-37); MCV 93.7 FL (81-99); MONO# 0.77 X1000 (0.11-0.59); MONO% 9.2 % (1.7-9.3); NEUT# 6.38 X1000 (1.4-6.5); NEUT% 75.8 % (42.2-75.2); PLT 165 X1000 (130-400); RBC 3.67 XMIL (4.7-6.1); RDW 13.6 % (11.5-14.5); WBC 8.41 X1000 (4.8-10.8)
[2019-05-28 07:30] LABS: INR 1.23; PROTIME 15.6 Seconds (11.0-16.0)
[2019-05-28 07:44] LABS: AGAP 12; ALBUMIN 2.8 g/dL (3.5-5.0); ALKALINE PHOSPHATASE 135 U/L (32-122); BUN 8 mg/dL (8-22); CALCIUM 8.8 mg/dL (8.8-10.2); CHLORIDE 101 mmol/L (98-107); COSMO 280; CREATININE 0.8 mg/dL (0.7-1.2); ESTIMATED GFR > 60; GLUCOSE 136 mg/dL (70-104); GOT 28 U/L (10-34); GPT 100 U/L (10-44); POTASSIUM 3.8 mmol/L (3.5-5.1); SODIUM 140 mmol/L (136-145); TCO2 27 mmol/L (25-35); TOTAL BILIRUBIN 1.15 mg/dL (0.20-1.00); TOTAL PROTEIN 5.7 g/dL (6.3-8.3)
[2019-05-28] MEDS: SYMBICORT 80/4.5 MICROGM INHALER INH SCH ×2 (07:56→19:23)
[2019-05-28] MEDS: LOVENOX SUBQ SCH (09:46)
[2019-05-28] MEDS: KLOR-CON PO SCH (09:46)
[2019-05-28] MEDS: FLOMAX PO SCH ×2 (09:46→21:05)
[2019-05-28] MEDS: LIPITOR PO SCH (09:46)
[2019-05-28] MEDS: PREDNISONE PO SCH (09:46)
[2019-05-28] MEDS: ASPIRIN PO SCH (09:46)
[2019-05-28] MEDS: LOPRESSOR PO SCH (09:46)
[2019-05-28] MEDS: HALDOL IV PRN ×2 (11:58→18:13)
--- NOTE | 2019-05-28 14:25 | PROGRESS NOTE ---
DATE: 05/28/2019 INTERVAL HISTORY: No acute events overnight. He has not been out of bed yet. Physical therapy has not evaluated him. He was agitated and wanted to come out of bed because of delirium and had to be given haloperidol. SUBJECTIVE: He is sleepy at the moment. Does not engage in the encounter. VITAL SIGNS: Temperature is 98.3 degrees, pulse 81, respiratory 18, blood pressure 160/73, saturating 98% via nasal cannula. INPUT AND OUTPUT: He has had 2 bowel movements documented on the morning and 3 bowel movements in the afternoon time. PHYSICAL EXAMINATION: General: Not in acute distress. HEENT: Oral cavity is moist. Lungs: Air entry bilaterally equal. No wheeze, rhonchi, crackles. Cardiovascular: S1, S2 normal. No murmur or gallop. Abdomen: Soft. He is not complaining of any tenderness. Laparoscopy scars are healing well. Active bowel sounds. Extremities: No lower extremity edema. Neurologic: He is drowsy at the moment. LABS: CBC is rather unremarkable except mild anemia. His electrolytes also are within acceptable range. His sugar is 164. His bilirubin, AST, ALT are coming down. MICROBIOLOGY: No positive data. C. difficile toxin was sent which was negative. ASSESSMENT AND PLAN: 1. Choledocholithiasis leading to acute cholecystitis, status post endoscopic retrograde cholangiopancreatography, laparoscopic cholecystectomy. Today is postoperative day 3. Continue oral diet. Physical therapy evaluation is pending. Continue enoxaparin for DVT prophylaxis. 2. Acute chronic obstructive pulmonary disease exacerbation. Continue albuterol ipratropium nebulization, Symbicort inhalation, and oral steroids. 3. Diabetes mellitus type 2. Currently well controlled on sliding scale insulin. 4. Others. Continue metoprolol and atorvastatin for history of essential hypertension, coronary artery disease requiring stent in 2014, hyperlipidemia. Continue Coumadin for remote history of right lower extremity DVT. DISPOSITION: Awaiting PT evaluation. Accordingly, he may need to go to rehab. Yesterday I discussed the plan of care with the patient's girlfriend. Today there is no family at bedside. cc: Jase Campbell MD
--- NOTE | 2019-05-28 18:24 | GENERAL SURGERY PROGRESS NOTE ---
DATE: 05/28/2019 SUBJECTIVE: The patient feels and looks better today. He denies abdominal pain, nausea, or vomiting. He is eating. OBJECTIVE: Vitals: He is afebrile. Vital signs are stable. General: He is awake, alert, oriented x3. No acute distress. GI: Soft, nontender, nondistended. Incisions clean, dry, and intact. ASSESSMENT AND PLAN: A 79-year-old male status post laparoscopic cholecystectomy. He is healing well from a surgical standpoint. cc: Eric Hui MD
[2019-05-28] MEDS: COUMADIN PO SCH (21:05)
[2019-05-29] MEDS: DUONEB (A & A) INH SCH ×6 (03:20→22:51)
[2019-05-29] MEDS: HUMALOG SUBQ SCH ×4 (06:12→22:33)
[2019-05-29] MEDS: PRILOSEC PO SCH (06:14)
[2019-05-29 07:33] LABS: INR 1.52; PROTIME 18.6 Seconds (11.0-16.0)
[2019-05-29] MEDS: SYMBICORT 80/4.5 MICROGM INHALER INH SCH ×2 (08:02→20:03)
[2019-05-29] MEDS: HALDOL IV PRN (10:16)
[2019-05-29] MEDS: ASPIRIN PO SCH (10:17)
[2019-05-29] MEDS: FLOMAX PO SCH ×2 (10:17→20:46)
[2019-05-29] MEDS: LIPITOR PO SCH (10:17)
[2019-05-29] MEDS: PREDNISONE PO SCH (10:17)
[2019-05-29] MEDS: LOPRESSOR PO SCH (10:17)
[2019-05-29] MEDS: KLOR-CON PO SCH (10:18)
[2019-05-29] MEDS: LOVENOX SUBQ SCH (10:18)
--- NOTE | 2019-05-29 13:50 | GASTROENTEROLOGY PROGRESS NOTE ---
DATE: 05/29/2019 SUBJECTIVE: Patient is awake and alert, in no acute distress. He has family at the bedside. He had cholecystectomy on 05/25/2019 along with repair of umbilical hernia and biopsy of right liver mass. Pathology is pending. He also had ERCP with stone extraction, sphincterotomy and stent placement on 05/23/2019. OBJECTIVE: Vital Signs: Temperature 97.9 degrees, pulse 82, respirations 20, blood pressure 153/62. LABORATORY: Hematology WBC 8.4, hemoglobin 10.7, hematocrit 34.4, MCV 93.7. Coagulation: Pro time 18.6, INR 1.52. Chemistry: Sodium 140, potassium 3.8, chloride 101, CO2 of 27, BUN 8, creatinine 0.8, glucose 136, total bilirubin 1.15, AST 28, ALT 100, alkaline phosphatase 135. ASSESSMENT AND PLAN: Choledocholithiasis, status post ERCP and status post laparoscopic cholecystectomy. Continue current management. Patient's son was at the bedside today. He states there are plans for him to go to rehab after discharge. I have recommended they follow up with us in the office after his rehab stay. I have already made him an office visit and given the information to the son and we will need to repeat his ERCP within the next 4-6 weeks. That will be scheduled as an outpatient. I have discussed the plan with the son who voices understanding. Further plans will be made as needed. I have discussed this case with Dr. Elizondo. Dictated by ABRAHAN Scales for Pito Elizondo MD cc: ABRAHAN Smith MD
--- NOTE | 2019-05-29 16:58 | PROGRESS NOTE ---
DATE: 05/29/2019 INTERVAL HISTORY: No acute events overnight. In the morning time when I saw him, he was restless and he was given haloperidol. Physical therapy had just evaluated him. volunteer services assistant is working on the rehab. The patient denies any complaints. He is having a bowel movement at the time of my encounter. VITAL SIGNS: Temperature 98.2 degrees, pulse 70, respiratory 18, blood pressure 110/74, saturating 96% on room air. PHYSICAL EXAMINATION: He is lying down in the bed, turning and tossing, appears restless. HEENT: Oral cavity is moist. Lungs: Air entry bilaterally equal. No wheeze, rhonchi or crackles. Cardiovascular: S1, S2 normal. No murmur, rub, or gallop. Abdomen: Soft, nontender. Active bowel sounds. Extremity: No lower extremity edema. [employer]CE INSTALLER: He is alert he is oriented to himself, not with place or situation. LABS: No CBC or BMP today. MICROBIOLOGY/IMAGING: No positive no positive microbiology or new imaging. ASSESSMENT AND PLAN: 1. Choledocholithiasis leading to acute cholecystitis, status post endoscopic retrograde cholangiopancreatography, laparoscopic cholecystectomy. Today is postoperative day 4. Continue oral diet. Physical therapy evaluation is ongoing. Continue enoxaparin for deep venous thrombosis prophylaxis. 2. Acute chronic obstructive pulmonary disease exacerbation. Continue albuterol ipratropium nebulization, Symbicort and oral steroids. 3. Diabetes mellitus type 2, currently well controlled. Sliding scale insulin. 4. Others continue metoprolol, atorvastatin and aspirin for history of coronary artery disease requiring stent in 2015 as well as essential hypertension, hyperlipidemia; continue on home Coumadin for history of right lower extremity deep venous thrombosis in 2015. DISPOSITION: Awaiting rehab. I called patient's son informed about patient's course and the fact that physical therapy evaluation is ongoing. However, he may benefit from going to the rehab. He agrees. I also discussed with him about discussing with the patient's primary doctor about discontinuing warfarin in future depending on his clinical course. I answered all of his questions. cc: MD MAGGI Barnes
[2019-05-29] MEDS: COUMADIN PO SCH (20:46)
[2019-05-30] MEDS: DUONEB (A & A) INH SCH ×4 (03:52→15:20)
[2019-05-30] MEDS: HUMALOG SUBQ SCH ×2 (06:32→12:47)
[2019-05-30] MEDS: PRILOSEC PO SCH (06:32)
[2019-05-30 06:52] LABS: AGAP 8; BUN 11 mg/dL (8-22); CALCIUM 8.9 mg/dL (8.8-10.2); CHLORIDE 99 mmol/L (98-107); COSMO 270; CREATININE 0.9 mg/dL (0.7-1.2); ESTIMATED GFR > 60; GLUCOSE 180 mg/dL (70-104); POTASSIUM 3.9 mmol/L (3.5-5.1); SODIUM 133 mmol/L (136-145); TCO2 26 mmol/L (25-35)
[2019-05-30] MEDS: SYMBICORT 80/4.5 MICROGM INHALER INH SCH (07:41)
[2019-05-30] MEDS: LOVENOX SUBQ SCH (09:14)
[2019-05-30] MEDS: LIPITOR PO SCH (09:14)
[2019-05-30] MEDS: LOPRESSOR PO SCH (09:14)
[2019-05-30] MEDS: ASPIRIN PO SCH (09:14)
[2019-05-30] MEDS: PREDNISONE PO SCH (09:14)
[2019-05-30] MEDS: FLOMAX PO SCH (09:14)
[2019-05-30] MEDS: KLOR-CON PO SCH (09:14)
--- NOTE | 2019-05-30 10:00 | PROGRESS NOTE ---
DATE: 05/30/2019 SUBJECTIVE: Mr. Kim is lying in the bed watching TV. He states that he does feel better today. He has no complaints. OBJECTIVE: Vital Signs: Blood pressure 135/66 with a heart rate of 82, respirations are 18, temperature 98.5 degrees oral with O2 saturations at 96 to 99% on 2 L nasal cannula. Cardiovascular: Regular rate and rhythm. S1 and S2 appreciated. No murmur. No rub. He has no lower extremity edema. Calves are nontender bilateral with peripheral pulses palpable x4 extremities. Pulmonary: Breath sounds are clear with no increased work of breathing noted. Chest rises and falls symmetric respiration. Chest wall is nontender to palpation. Gastrointestinal: Abdomen is soft, nontender, and nondistended with bowel sounds in all 4 quadrants. Neurologic: He is alert and oriented to himself. LABORATORY: Sodium 133, potassium 3.9, BUN 11, creatinine 0.9 with blood sugar 180. ASSESSMENT AND PLAN: 1. Choledocholithiasis leading to acute cholecystitis, status post endoscopic retrograde cholangiopancreatography and laparoscopic cholecystectomy. Today, is postop day 5. We will continue with his current treatment. 2. Acute chronic obstructive pulmonary disease exacerbation. Continue DuoNeb, Symbicort, and oral steroids. 3. Hypertension. We will continue his current medical regimen. 4. History of CAD with stent in 2014. We will continue with his current medical regimen. 5. DVT prophylaxis. Lovenox. 6. GI prophylaxis. Prilosec. Dictated by ABRAHAN Gentile for Arya Sawant MD cc: ABRAHAN Gentile MD
--- NOTE | 2019-05-30 12:54 | GASTROENTEROLOGY PROGRESS NOTE ---
DATE: 05/30/2019 SUBJECTIVE: Patient was asleep at the time on my visit. He was in no acute distress. No family was available at the bedside. OBJECTIVE: Vital Signs: Temperature 98.0 degrees, pulse 131, respirations 18, blood pressure 116/53. LABORATORY: Hematology: WBC 8.41, hemoglobin 10.7, hematocrit 34.4, coagulation ProTime 18.6, INR 1.52. Chemistry: Sodium 133, potassium 3.9, chloride 99, CO2 26, BUN 11, creatinine 0.9, glucose 180. Liver function test on 05/28/2019, total bilirubin 1.15, AST 28, ALT 100, alkaline phosphatase 135. ASSESSMENT AND PLAN: Choledocholithiasis, status post endoscopic retrograde cholangiopancreatography and sphincterotomy and stent placement. Also status post cholecystectomy. Umbilical hernia repair. Also biopsy of right liver mass. Pathology is pending. Will continue to follow for pathology results. The patient will need repeat ERCP in 4 to 6 weeks. I have already made him an office visit and given the information to his son yesterday. Further plans will be made as needed. Dictated by ABRAHAN Scales for Pito Elizondo MD cc: ABRAHAN Smith MD
--- NOTE | 2019-05-30 14:40 | DISCHARGE SUMMARY ---
ADMISSION DATE: 05/21/2019 DISCHARGE DATE: 05/30/2019 ADMISSION DIAGNOSES: 1. Acute cholecystitis. 2. Acute on chronic pancreatitis. 3. Biliary obstruction with obstructive jaundice. 4. Diabetes mellitus type 2. 5. Hypertension. 6. Hyperlipidemia. 7. History of right lower extremity deep venous thrombosis. 8. Coronary artery disease. 9. Benign prostatic hypertrophy. DISCHARGE DIAGNOSES: 1. Choledocholithiasis leading to acute cholecystitis, status post endoscopic retrograde cholangiopancreatography and stone extraction with plastic stent on 05/23/2019. 2. Diabetes mellitus type 2. 3. Essential hypertension. 4. History of right lower extremity deep venous thrombosis. 5. History of coronary artery disease, status post stent in 2014. 6. Hyperlipidemia. 7. History of tobacco use. CONSULTS: Dr. Rickie Casillas, general surgery; Dr. Elizondo, gastroenterology. DIAGNOSTICS: 1. On 05/21/2019, CT of the abdomen and pelvis revealed a 1 cm obstructing stone in the distal common duct with intrahepatic and extrahepatic biliary ductal dilatation. The gallbladder substantially distended and there is pericholecystic fluid. Possibility of cholecystitis cannot be excluded. 2. CT of the head revealed no visible acute intracranial abnormality. No evidence of intracranial injury. 3. Abdominal ultrasound, acalculous cholecystitis. There is a fatty infiltration of the liver. 4. ERCP, common duct appears dilated and there is a suggestion of a filling defect at the distal end of the common bile duct that may represent ductal stones. On the final image, the new biliary stent is identified in the expected position. 5. Cholangiogram, no discrete filling defects or strictures are identified involving the common bile duct. Contrast passes normally into the small bowel. PROCEDURES/SURGERY: Laparoscopic cholecystectomy with intraoperative cholangiogram, core needle biopsy x2 of the right liver mass, with open primary repair of umbilical hernia on 05/21/2019. HOSPITAL COURSE: Mr. Kim presented to the emergency room complaining of difficulty breathing for 2 days. He was found to have pancreatitis and acute cholecystitis with biliary obstruction and obstructive jaundice. He underwent ERCP and biliary stent placement by Dr. Elizondo. Then, on the , he underwent a laparoscopic with intraoperative cholangiogram with needle biopsy of the right liver mass, which he tolerated well. He has been out of bed with physical therapy. He did have episodes of delirium, requiring Haldol. This has resolved. He has tolerated a full liquid diet with Glucerna shakes with each meal, eating 100% with no abdominal pain, nausea, or vomiting. He is on chronic anticoagulation secondary to a right lower extremity DVT. This was held initially. Coumadin has been restarted. His INR is 1.5. DISCHARGE VITAL SIGNS: Blood pressure is 116/53, with a heart rate of 96, respirations 18, temperature 98.5 degrees, with room air saturations 98%. DISCHARGE PHYSICAL EXAMINATION: Cardiovascular: Regular rate and rhythm. S1 and S2 are appreciated. Peripheral pulses are palpable x4 extremities. Pulmonary: Breath sounds are clear with no increased work of breathing noted. Chest rises and falls symmetrically with respirations. Gastrointestinal: Abdomen is soft, nontender, nondistended with bowel sounds in all 4 quadrants. Neurologic: He is alert and oriented to himself. DISCHARGE MEDICATIONS: 1. Warfarin 5 mg p.o. daily. 2. Prilosec 20 mg p.o. daily. 3. [place]-3 p.o. b.i.d. 4. Medrol Dosepak as directed. 5. Metformin 500 mg p.o. daily. 6. [place] 10/325 one q.6 hours p.r.n. pain. 7. Folic acid, multivitamin 1 p.o. daily. 8. Finasteride 5 mg p.o. daily. 9. Aspirin 81 mg p.o. daily. 10. Tylenol 650 p.o. daily. 11. Flomax 0.4 mg p.o. b.i.d. 12. Klor-Con 20 mEq p.o. daily. 13. Metoprolol 50 mg p.o. daily. 14. Atorvastatin 80 mg p.o. daily. FOLLOWUP: 1. Dr. Elizondo in 6 weeks for an ERCP. Appointment has been scheduled per Dr. Elizondo's office and the information was given to the patient's son. 2. Dr. Hogan, his primary care physician. He needs to follow up after discharge from rehab. 3. Dr. Elda Casillas as instructed. He is being discharged to rehab in stable condition. TIME SPENT: This is a greater than 30 minute discharge. Dictated by ABRAHAN Gentile for Arya Sawant MD cc: ABRAHAN Gentile MD
[2019-05-30 16:13] VITALS: BP 127/80
== END 2019-05-30 17:03 | DRG 417 ==
LOC: ED 16:17 → SUATTDRO 21:23 → 3N 21:23
PROVIDERS: ATTEND Internal Medicine
PROC: EN.ERCP (2019-05-23 12:30)